=== PATIENT | female | born 1955 | race American Indian/Alaskan Native ===

== ENCOUNTER 2016-12-29 08:58 | Emergency (ER) | payer MEDICARE, MEDICAID ==
[2016-12-29 08:59] VITALS: BMI 35.4
[2016-12-29 09:29] VITALS: RESP 18; TEMP 98
--- NOTE | 2016-12-29 09:48 | ED PDOC ---
Arrival/HPI - General Chief Complaint: Shortness Of Breath Time Seen by Provider: 12/29/16 09:34 Historian: Patient - History of Present Illness Narrative History of Present Illness (Text): 12/29/16 09:35 A 61 year old female, whose past medical history includes asthma (previously hospitalized but never intubated), presents to the emergency department complaining of persistent wheezing and a nonproductive cough for the past few days. Patient notes she went to her PMD who started her on perdinsone and a Z- bia. Patient denies any chest pain, fever, or other complaints at this time. PMD: Dr. Melchor Time/Duration: Other (few days) Symptom Onset: Sudden Symptom Course: Unchanged Quality: Other Activities at Onset: Rest Context: Home Past Medical History - Provider Review Nursing Documentation Reviewed: Yes - Past History Past History: No Previous - Infectious Disease Hx of Infectious Diseases: None - Tetanus Immunization Tetanus Immunization: Unknown - Reproductive Menopause: Yes - Past Medical History Past Medical History: Non-Contributing - Cardiac Hx Hypertension: Yes - Pulmonary Hx Asthma: Yes Hx Bronchitis: No Hx Chronic Obstructive Pulmonary Disease (COPD): Yes Hx Emphysema: No Hx Pneumonia: No Hx Sleep Apnea: Yes - Neurological Hx Alzheimer's Disease: No Hx Dementia: No Hx Migraine: No Hx Parkinson's Disease: No Hx Seizures: No Hx Transient Ischemic Attacks (TIA): No - HEENT Hx HEENT Disorder: No - Renal Hx Renal Disorder: No Hx Kidney Stones: No - Endocrine/Metabolic Hx Hyperthyroidism: No Hx Hypothyroidism: No - Hematological/Oncological Hx Anemia: No Hx Sickle Cell Disease: No - Integumentary Hx Dermatological Disorder: No - Musculoskeletal/Rheumatological Hx Arthritis: No Hx Fractures: No Hx Osteoporosis: No - Gastrointestinal Hx Crohn's Disease: No Hx Diverticulitis: No Hx Gall Bladder Disease: No Hx Gastrointestinal Ulcer: No Hx Pancreatitis: No - Genitourinary/Gynecological Hx Sexually Transmitted Diseases: No - Psychiatric Hx Anxiety: No Hx Bipolar Disorder: No Hx Depression: No Hx Post Traumatic Stress Disorder: No Hx Schizophrenia: No Hx Substance Use: No - Past Surgical History Past Surgical History: Non-Contributing - Surgical History Hx Section: Yes - Anesthesia Hx Anesthesia: Yes Hx Anesthesia Reactions: No Hx Malignant Hyperthermia: No - Suicidal Assessment Feels Threatened In Home Enviroment: No Family/Social History - Physician Review Nursing Documentation Reviewed: Yes Family/Social History: Unknown Family HX Smoking Status: Never Smoked Hx Alcohol Use: Yes Hx Substance Use: No Hx Substance Use Treatment: No Allergies/Home Meds Allergies/Adverse Reactions: Allergies aspirin Allergy (Mild, Verified 12/29/16 09:29) RASH Penicillins Allergy (Mild, Verified 12/29/16 09:29) RASH Home Medications: Home Meds Medication Instructions Recorded Confirmed Albuterol Sulfate [Proair Hfa] 2 puff INH PRN PRN 05/03/15 12/29/16 Fluticasone/Vilanterol [Breo 1 each IH DAILY 12/02/16 12/29/16 Ellipta 200-25 Mcg INH] Montelukast Sodium [Singulair] 10 mg PO DAILY 12/02/16 12/29/16 Review of Systems - Physician Review All systems were reviewed & negative as marked: Yes - Review of Systems Constitutional: absent: Fevers Respiratory: SOB, Cough. absent: Sputum Cardiovascular: absent: Chest Pain Gastrointestinal: absent: Diarrhea, Nausea, Vomiting Physical Exam Vital Signs Reviewed: Yes Vital Signs Temp Pulse Resp BP Pulse Ox 12/29/16 11:04 68 18 131/69 97 12/29/16 09:25 98 F 75 18 133/75 98 Temperature: Afebrile Blood Pressure: Normal Pulse: Regular Respiratory Rate: Normal Appearance: Positive for: Well-Appearing, Non-Toxic, Comfortable Pain Distress: None Mental Status: Positive for: Alert and Oriented X 3 - Systems Exam Head: Present: Atraumatic, Normocephalic Pupils: Present: PERRL Extroacular Muscles: Present: EOMI Conjunctiva: Present: Normal Mouth: Present: Moist Mucous Membranes Neck: Present: Normal Range of Motion Respiratory/Chest: Present: Wheezes (bilaterally). No: Respiratory Distress, Accessory Muscle Use, Decreased Breath Sounds, Rales, Rhonchi Cardiovascular: Present: Regular Rate and Rhythm, Normal S1, S2. No: Murmurs Abdomen: Present: Normal Bowel Sounds. No: Tenderness, Distention, Peritoneal Signs Back: Present: Normal Inspection Upper Extremity: Present: Normal Inspection. No: Cyanosis, Edema Lower Extremity: Present: Normal Inspection. No: Edema Neurological: Present: GCS=15, CN II-XII Intact, Speech Normal Skin: Present: Warm, Dry, Normal Color. No: Rashes Psychiatric: Present: Alert, Oriented x 3, Normal Insight, Normal Concentration Medical Decision Making ED Course and Treatment: 12/29/16 09:35 Impression: A 61 year old female with wheezing and cough. Differential Diagnosis include but are not limited to: asthma exacerbation Plan: -- EKG -- Chest X-ray -- Labs -- Urinalysis -- Duoneb and Solu-medrol -- Reassess and disposition Prior Visits: Notes and results from previous visits were reviewed. The patient last presented to the emergency department on 12/02/16 for evaluation of swelling to the right lower extremity. Progress Notes: EKG: Ordered, reviewed, and independently interpreted the EKG. Rate : 71 BPM Rhythm : Sinus Rhythm Interpretation : No ST/T changes. 12/29/16 10:00 Chest X-ray: Creator : Itz Han MD COMPARISON: 08/07/2016 FINDINGS: LUNGS: No active pulmonary disease. PLEURA: No significant pleural effusion identified, no pneumothorax apparent. CARDIOVASCULAR: Normal. OSSEOUS STRUCTURES: No significant abnormalities. VISUALIZED UPPER ABDOMEN: Normal. OTHER FINDINGS: None. IMPRESSION: No active disease. 12/29/16 11:25 Patient reassessed. lungs clear. as pt was on po steriods (20mg) x 5 days, not improving at home, requested pt to be admitted. pt declines admission, states "she feels much better". requesting instead to be d/c. will dc with steriod taper. uti covered. - Lab Interpretations Lab Results: 12/29/16 10:00 12/29/16 10:00 Lab Results 12/29/16 10:00: WBC 5.8, RBC 4.39, Hgb 12.6, Hct 36.3, MCV 82.7, MCH 28.7, MCHC 34.7, RDW 14.3, Plt Count 287, MPV 10.0, Gran % 32.2 L, Lymph % (Auto) 51.3 H, [place] % (Auto) 11.0 H, Eos % (Auto) 5.2 H, Baso % (Auto) 0.3, Gran # 1.87, Lymph # 3.0, [place] # 0.6, Eos # 0.3, Baso # 0.02, PT 10.7, INR 0.99, APTT 27.1, Sodium 139, Potassium 4.2, Chloride 102, Carbon Dioxide 32, Anion Gap 9 L, BUN 14, Creatinine 0.7, Est GFR ( Amer) > 60, Est GFR (Non-Af Amer) > 60, Random Glucose 92, Calcium 9.3, Magnesium 2.1, Total Bilirubin 0.7, AST 28, ALT 29, Alkaline Phosphatase 69, Lactate Dehydrogenase 448, Total Creatine Kinase 83, Troponin I < 0.01, NT-Pro-B Natriuret Pep 54.8, Total Protein 7.8, Albumin 3.9, Globulin 3.9, Albumin/Globulin Ratio 1.0 L, Urine Color Yellow, Urine Appearance Turbid, Urine pH 6.0, Ur Specific [place] 1.020, Urine Protein Negative, Urine Glucose (UA) Negative, Urine Ketones Negative, Urine Blood Small H, Urine Nitrate Negative, Urine Bilirubin Negative, Urine Urobilinogen 0.2, Ur Leukocyte Esterase Large H, Urine RBC 0 - 2, Urine WBC 15 - 20, Ur Epithelial Cells 4 - 5, Urine Bacteria Few I have reviewed the lab results: Yes - RAD Interpretation Radiology Orders: 12/29/16 09:39 CHEST PORTABLE [RAD] Stat - Medication Orders Current Medication Orders: Ciprofloxacin (Cipro 400mg/200ml Dsw) 200 mls @ 133.3 mls/hr IVPB STAT STA PRN Reason: Protocol Stop: 12/29/16 12:18 Discontinued Medications Albuterol/Ipratropium (Duoneb 3 Mg/0.5 Mg (3 Ml) Ud) 3 ml IH Q15M ANGELA Stop: 12/29/16 10:16 Last Admin: 12/29/16 10:21 Dose: 3 ML Methylprednisolone (Solu-Medrol) 125 mg IVP STAT STA Stop: 12/29/16 09:40 Last Admin: 12/29/16 10:20 Dose: 125 MG IVP Administration Document 12/29/16 10:20 SF (Rec: 12/29/16 10:20 [id number] Charges for Administration # of IVP Administrations 1 - Scribe Statement The provider has reviewed the documentation as recorded by the Scribe Sahara Adams Provider Scribe Attestation: All medical record entries made by the Scribe were at my direction and personally dictated by me. I have reviewed the chart and agree that the record accurately reflects my personal performance of the history, physical exam, medical decision making, and the department course for this patient. I have also personally directed, reviewed, and agree with the discharge instructions and disposition. Disposition/Present on Arrival - Present on Arrival Any Indicators Present on Arrival: No History of DVT/PE: No History of Uncontrolled Diabetes: No Urinary Catheter: No History of Decub. Ulcer: No History Surgical Site Infection Following: None - Disposition Have Diagnosis and Disposition been Completed?: Yes Diagnosis: Asthma Disposition: HOME/ ROUTINE Disposition Time: 11:27 Patient Problems: Current Active Problems Problem Status Diagnosed Asthma Acute Condition: STABLE Discharge Instructions (ExitCare): Asthma (ED), Urinary Tract Infection in Women (ED) Additional Instructions: please follow up with your doctor. return to er with worsening symptoms or concerns. you are declining futher observation in hospital. you are able to return at any time with any concern. Prescriptions: Sulfamethoxazole/Trimethoprim [Bactrim DS 800 mg-160 mg] 1 tab PO BID #14 tab predniSONE [predniSONE Tab] 10 mg PO DAILY #15 tab Referrals: Suzi Mariscal, [Primary Care Provider] - Follow up with primary [facility] [place] - Follow up with primary [facility] [Outside] - Follow up with primary
--- NOTE | 2016-12-29 09:58 | RAD ---
HISTORY: sob COMPARISON: 08/07/2016 FINDINGS: LUNGS: No active pulmonary disease. PLEURA: No significant pleural effusion identified, no pneumothorax apparent. CARDIOVASCULAR: Normal. OSSEOUS STRUCTURES: No significant abnormalities. VISUALIZED UPPER ABDOMEN: Normal. OTHER FINDINGS: None. IMPRESSION: No active disease.
[2016-12-29] MEDS: Albuterol-Ipratrop 3 mg / 0.5 (3 ml) UD IH SCH ×3 (10:05→10:35)
[2016-12-29 10:24] LABS: ADD MANUAL DIFF? NO
[2016-12-29 10:32] LABS: BASO # 0.02 K/mm3 (0.0-2.0); BASO % 0.3 % (0.0-3.0); EOS # 0.3 (0.0-0.7); EOS % 5.2 % (1.5-5.0); GRAN # 1.87 (1.4-6.5); GRAN % 32.2 % (50.0-68.0); HEMATOCRIT 36.3 % (36.0-48.0); LYMPH % 51.3 % (22.0-35.0); MEAN CELL VOLUME 82.7 fL (80.0-105.0); MEAN CORPUSCULAR HEMOGLOBIN 28.7 pg (25.0-35.0); MEAN CORPUSCULAR HGB CONC 34.7 g/dl (31.0-37.0); MONO # 0.6 (0.1-0.6); PLATELET COUNT 287 10^3/uL (120.0-450.0); RED CELL DISTRIBUTION WIDTH 14.3 % (11.5-14.5); WHITE BLOOD COUNT 5.8 10^3/ul (4.5-11.0)
[2016-12-29 10:39] LABS: URINE BILIRUBIN NEGATIVE (NEGATIVE); URINE BLOOD SMALL (NEGATIVE); URINE GLUCOSE (UA) NEGATIVE (NEGATIVE); URINE KETONE NEGATIVE (NEGATIVE); URINE LEUKOCYTE ESTERASE LARGE Leu/uL (NEGATIVE); URINE PROTEIN NEGATIVE mg/dL (<30 mg/dL); URINE UROBILINOGEN 0.2 E.U./dL (<1 E.U./dL)
[2016-12-29 10:40] LABS: INR 0.99 (0.93-1.08); PARTIAL THROMBOPLASTIN TIME 27.1 Seconds (23.7-30.8); URINE APPEARANCE TURBID (CLEAR); URINE COLOR YELLOW (YELLOW)
[2016-12-29 10:46] LABS: URINE RBC 0 - 2 /hpf (0-2); URINE WBC 15 - 20 /hpf (0-6)
[2016-12-29 10:47] LABS: URINE BACTERIA FEW (NEG)
[2016-12-29] MEDS ORDERED: Ciprofloxacin 400mg/200ml D5W 200 ML IVPB STA (10:48)
[2016-12-29 10:53] LABS: ALKALINE PHOSPHATASE 69 U/L (38-133); ALT/SGPT 29 U/L (7-56); AST/SGOT 28 U/L (15-39); BILIRUBIN,TOTAL 0.7 mg/dL (0.2-1.3); BLOOD UREA NITROGEN 14 mg/dL (7-21); CALCIUM 9.3 mg/dL (8.4-10.5); CARBON DIOXIDE 32 mmol/L (21-33); CHLORIDE 102 mmol/L (98-107); GFR AFRICAN-AMERICAN > 60; GLUCOSE,RANDOM 92 mg/dL (70-110); MAGNESIUM 2.1 mg/dL (1.7-2.2); POTASSIUM 4.2 mmol/L (3.6-5.0); SODIUM 139 mmol/L (132-148); TOTAL PROTEIN 7.8 g/dL (5.8-8.3)
[2016-12-29 11:04] LABS: TROPONIN I < 0.01 ng/mL
[2016-12-29 12:47] VITALS: BP 128/66; PULSE 80; O2SAT 100
--- NOTE | 2016-12-29 16:44 | CARD ---
APPROVED REPORT EKG Measurement Heart [id number] <Conclusion> Normal sinus rhythm with sinus arrhythmia Normal ECG
== END 2016-12-29 13:03 | disposition home or self-care (01) ==
LOC: ED 08:58
DX: J45.909 Unspecified asthma, uncomplicated (principal); I10 Essential (primary) hypertension
CPT/HCPCS: 71010; 80053; 81001; 82550; 83615; 83735; 83880; 84484; 85025; 85610; 85730; 87086; 93005; 94640; 96374; 99285; J2930

== ENCOUNTER 2017-01-31 12:01 | Emergency (ER) | payer OTHER, MEDICAID ==
[2017-01-31 12:02] VITALS: BMI 35.4
[2017-01-31 12:11] VITALS: BP 125/83; PULSE 91; RESP 17; TEMP 98.7; O2SAT 98
--- NOTE | 2017-01-31 12:19 | ED PDOC ---
Arrival/HPI - General Chief Complaint: Lower Extremity Problem/Injury Time Seen by Provider: 01/31/17 12:05 Historian: Patient - History of Present Illness Narrative History of Present Illness (Text): 01/31/17 12:17 61yo female with PMHx of Asthma who present with complaint of left knee pain/ swelling x 3days. States she went to [facility] today for the pain and was referred to ED for further evaluation. she denies previous history. Denies trauma, SOB, chest pain, recent travel, any other complaint. Past Medical History - Provider Review Nursing Documentation Reviewed: Yes - Past History Past History: No Previous - Infectious Disease Hx of Infectious Diseases: None - Tetanus Immunization Tetanus Immunization: Unknown - Past Medical History Past Medical History: Non-Contributing - Cardiac Hx Hypertension: Yes - Pulmonary Hx Asthma: Yes Hx Bronchitis: No Hx Chronic Obstructive Pulmonary Disease (COPD): Yes Hx Emphysema: No Hx Pneumonia: No Hx Sleep Apnea: Yes - Neurological Hx Alzheimer's Disease: No Hx Dementia: No Hx Migraine: No Hx Parkinson's Disease: No Hx Seizures: No Hx Transient Ischemic Attacks (TIA): No - HEENT Hx HEENT Disorder: No - Renal Hx Renal Disorder: No Hx Kidney Stones: No - Endocrine/Metabolic Hx Hyperthyroidism: No Hx Hypothyroidism: No - Hematological/Oncological Hx Anemia: No Hx Sickle Cell Disease: No - Integumentary Hx Dermatological Disorder: No - Musculoskeletal/Rheumatological Hx Arthritis: No Hx Fractures: No Hx Osteoporosis: No - Gastrointestinal Hx Crohn's Disease: No Hx Diverticulitis: No Hx Gall Bladder Disease: No Hx Gastrointestinal Ulcer: No Hx Pancreatitis: No - Genitourinary/Gynecological Hx Sexually Transmitted Diseases: No - Psychiatric Hx Anxiety: No Hx Bipolar Disorder: No Hx Depression: No Hx Post Traumatic Stress Disorder: No Hx Schizophrenia: No Hx Substance Use: No - Past Surgical History Past Surgical History: Non-Contributing - Surgical History Hx Section: Yes - Anesthesia Hx Anesthesia: Yes - Suicidal Assessment Feels Threatened In Home Enviroment: No Family/Social History - Physician Review Nursing Documentation Reviewed: Yes Family/Social History: Unknown Family HX Smoking Status: Never Smoked Hx Alcohol Use: Yes Hx Substance Use: No Hx Substance Use Treatment: No Allergies/Home Meds Allergies/Adverse Reactions: Allergies aspirin Allergy (Mild, Verified 01/31/17 12:06) RASH Penicillins Allergy (Mild, Verified 01/31/17 12:06) RASH Home Medications: Home Meds Medication Instructions Recorded Confirmed Albuterol Sulfate [Proair Hfa] 2 puff INH PRN PRN 05/03/15 01/31/17 Montelukast Sodium [Singulair] 10 mg PO DAILY 12/02/16 01/31/17 Tiotropium Br/Olodaterol HCl 1 puff NEB DAILY 01/31/17 01/31/17 [Stiolto Respimat Inhal [place]] Review of Systems - Physician Review All systems were reviewed & negative as marked: Yes - Review of Systems Constitutional: Normal Eyes: Normal ENT: Normal Respiratory: Normal Cardiovascular: Normal Gastrointestinal: Normal Genitourinary Female: Normal Musculoskeletal: Arthralgias (Left knee pain) Skin: Normal Neurological: Normal Endocrine: Normal Hemo/Lymphatic: Normal Psychiatric: Normal Physical Exam Vital Signs Reviewed: Yes Vital Signs Temp Pulse Resp BP Pulse Ox 01/31/17 12:10 98.7 F 91 H 17 125/83 98 Temperature: Afebrile Blood Pressure: Normal Pulse: Regular Respiratory Rate: Normal Appearance: Positive for: Well-Appearing, Non-Toxic, Comfortable Pain Distress: None Mental Status: Positive for: Alert and Oriented X 3 - Systems Exam Head: Present: Atraumatic, Normocephalic Pupils: Present: PERRL Extroacular Muscles: Present: EOMI Conjunctiva: Present: Normal Mouth: Present: Moist Mucous Membranes Neck: Present: Normal Range of Motion Respiratory/Chest: Present: Clear to Auscultation, Good Air Exchange. No: Respiratory Distress, Accessory Muscle Use Cardiovascular: Present: Regular Rate and Rhythm, Normal S1, S2. No: Murmurs Abdomen: Present: Normal Bowel Sounds. No: Tenderness, Distention, Peritoneal Signs Back: Present: Normal Inspection Upper Extremity: Present: Normal Inspection. No: Cyanosis, Edema Lower Extremity: Present: NORMAL PULSES, Normal ROM, Tenderness (Posterior and anterior left knee), Swelling (Mild swelling of posterior left knee noted), Neurovascularly Intact. No: Edema, CALF TENDERNESS, Cyanosis, Erythema, Deformity, Temperature Abnormalties Neurological: Present: GCS=15, CN II-XII Intact, Speech Normal Skin: Present: Warm, Dry, Normal Color. No: Rashes Psychiatric: Present: Alert, Oriented x 3, Normal Insight, Normal Concentration Medical Decision Making ED Course and Treatment: 01/31/17 13:32 Per US tech - Doppler is negative for DVT. Approximately 5cm Bakers cyst noted Left knee xray - No acute finding Result was DW the pt. Pawel wrap was applied. Pt was referred to ortho Pt the RN Maribell pt declined pain medication in ED. - RAD Interpretation Radiology Orders: 01/31/17 12:15 DUPLEX LOWER EXTRM VEIN LEFT [US] Stat 01/31/17 12:16 KNEE WITH PATELLA LEFT 3 VIEW [RAD] Stat - Medication Orders Current Medication Orders: Discontinued Medications Oxycodone/Acetaminophen (Percocet 5/325 Mg Tab) 1 tab PO STAT STA Stop: 01/31/17 12:17 Last Admin: 01/31/17 12:26 Dose: Disposition/Present on Arrival - Present on Arrival Any Indicators Present on Arrival: No History of DVT/PE: No History of Uncontrolled Diabetes: No Urinary Catheter: No History of Decub. Ulcer: No History Surgical Site Infection Following: None - Disposition Have Diagnosis and Disposition been Completed?: Yes Diagnosis: Bakers cyst, Knee pain Disposition: HOME/ ROUTINE Disposition Time: 13:40 Patient Plan: Discharge Condition: STABLE Discharge Instructions (ExitCare): Knee Pain (ED) Additional Instructions: Follow up with your Doctor/orthopedist Return to ED for any new or worsening symptoms Referrals: Tip Myers MD [Primary Care Provider] - Follow up with primary Aaron Lange MD [Staff Provider] - Follow up with primary
[2017-01-31] MEDS: Oxycodone/Acetaminophen 5/325 mg Tab PO STA ×2 (12:25→12:26)
--- NOTE | 2017-01-31 15:18 | RAD ---
PROCEDURE: Left Knee Radiographs. HISTORY: Pain. COMPARISON: None. FINDINGS: BONES: Normal. No fracture. JOINTS: Normal. No osteoarthritis. JOINT EFFUSION: None. OTHER FINDINGS: None. IMPRESSION: Normal radiographs of the left knee.
--- NOTE | 2017-01-31 17:47 | US ---
PROCEDURE: Left lower extremity venous US HISTORY: Leg pain and swelling. Evaluate for DVT. PHYSICIAN(S): Russell Arellano MD. TECHNIQUE: Duplex sonography and color-flow Doppler with graded compression were used to evaluate the deep venous system of the left lower extremity. FINDINGS: The visualized deep venous system of the left lower extremity is sonographically normal and compressible. Normal wave forms and augmentation are seen. There is no sonographic evidence for deep venous thrombosis in the visualized segments of the left lower extremity. There is a complex 1.4 x 5.0 cm fluid collection left popliteal fossa, consistent with a Ochoa's cyst. IMPRESSION: 1. No sonographic evidence for deep venous thrombosis in the visualized segments of the left lower extremity.
== END 2017-01-31 13:51 | disposition home or self-care (01) ==
LOC: ED 12:01
DX: M71.22 Synovial cyst of popliteal space [Baker], left knee (principal); M25.562 Pain in left knee; I10 Essential (primary) hypertension

== ENCOUNTER 2017-07-24 10:49 | Emergency (ER) | payer OTHER ==
[2017-07-24 10:54] VITALS: BMI 35.6
[2017-07-24 10:55] VITALS: RESP 18; TEMP 98; O2SAT 100
[2017-07-24] MEDS ORDERED: DiphenhydrAMINE 50 mg/ml Inj IVP STA (11:43)
--- NOTE | 2017-07-24 11:47 | ED PDOC ---
Arrival/HPI - General Chief Complaint: Headache Time Seen by Provider: 07/24/17 10:55 - History of Present Illness Narrative History of Present Illness (Text): 62F c/o frontal headache she noted upon waking up last night around 1am. she says the headache did not wake her up but rather she woke up and then noticed it was there. she then went back to sleep and woke up with headache still present and took her BP meds at which time it "eased up." she reports URI sx for the last 2 weeks including nasal congestion and cough. no fever or neck pain. Past Medical History - Past History Past History: No Previous - Infectious Disease Hx of Infectious Diseases: None - Tetanus Immunization Tetanus Immunization: Unknown - Past Medical History Past Medical History: Non-Contributing - Cardiac Hx Cardiac Disorders: Yes Hx Hypertension: Yes - Pulmonary Hx Asthma: Yes Hx Bronchitis: No Hx Chronic Obstructive Pulmonary Disease (COPD): Yes Hx Emphysema: No Hx Pneumonia: No Hx Sleep Apnea: Yes - Neurological Hx Alzheimer's Disease: No Hx Dementia: No Hx Migraine: No Hx Parkinson's Disease: No Hx Seizures: No Hx Transient Ischemic Attacks (TIA): No - HEENT Hx HEENT Disorder: No - Renal Hx Renal Disorder: No Hx Kidney Stones: No - Endocrine/Metabolic Hx Hyperthyroidism: No Hx Hypothyroidism: No - Hematological/Oncological Hx Anemia: No Hx Sickle Cell Disease: No - Integumentary Hx Dermatological Disorder: No - Musculoskeletal/Rheumatological Hx Arthritis: No Hx Fractures: No Hx Osteoporosis: No - Gastrointestinal Hx Crohn's Disease: No Hx Diverticulitis: No Hx Gall Bladder Disease: No Hx Gastrointestinal Ulcer: No Hx Pancreatitis: No - Genitourinary/Gynecological Hx Sexually Transmitted Diseases: No - Psychiatric Hx Anxiety: No Hx Bipolar Disorder: No Hx Depression: No Hx Post Traumatic Stress Disorder: No Hx Schizophrenia: No Hx Substance Use: No - Past Surgical History Past Surgical History: Non-Contributing - Surgical History Hx Section: Yes - Anesthesia Hx Anesthesia: Yes Hx Anesthesia Reactions: No - Suicidal Assessment Feels Threatened In Home Enviroment: No Family/Social History Family/Social History: denies: Intracranial Hemorrhage Smoking Status: Never Smoked Hx Alcohol Use: Yes Hx Substance Use: No Hx Substance Use Treatment: No Allergies/Home Meds Allergies/Adverse Reactions: Allergies aspirin Allergy (Mild, Verified 07/24/17 10:51) RASH Penicillins Allergy (Mild, Verified 07/24/17 10:51) RASH Home Medications: Home Meds Medication Instructions Recorded Confirmed Fluticasone/Vilanterol [Breo 1 puff IH DAILY 07/24/17 07/24/17 Ellipta 100-25 Mcg INH] amLODIPine [Norvasc] 10 g PO DAILY 07/24/17 07/24/17 Review of Systems - Review of Systems Constitutional: absent: Fatigue, Fevers Eyes: absent: Vision Changes ENT: absent: Hearing Changes Respiratory: Cough. absent: SOB Cardiovascular: absent: Chest Pain Gastrointestinal: absent: Nausea, Vomiting Neurological: Headache. absent: Dizziness, Focal Weakness, Gait Changes Physical Exam Vital Signs Reviewed: Yes Vital Signs Temp Pulse Resp BP Pulse Ox 07/24/17 12:05 75 18 135/79 100 07/24/17 10:50 98.0 F 89 18 138/83 100 Appearance: Positive for: Well-Appearing, Non-Toxic, Comfortable Pain Distress: None Mental Status: Positive for: Alert and Oriented X 3 - Systems Exam Head: Present: Atraumatic Pupils: Present: PERRL Extroacular Muscles: Present: EOMI Mouth: Present: Moist Mucous Membranes Neck: Present: Normal Range of Motion (supple) Respiratory/Chest: Present: Clear to Auscultation. No: Respiratory Distress, Accessory Muscle Use Cardiovascular: Present: Regular Rate and Rhythm Neurological: Present: GCS=15, CN II-XII Intact, Motor Func Grossly Intact, Normal Sensory Function, Normal Cerebellar Funct, Gait Normal Skin: Present: Warm, Dry Psychiatric: Present: Alert, Oriented x 3 Medical Decision Making ED Course and Treatment: 07/24/17 13:20 Upon re-evaluation, the patient states she is feeling much better and her headache is completely gone. She is tolerating po well and is comfortable with discharge. Follow up and return precautions advised. - Lab Interpretations Lab Results: 07/24/17 11:50 07/24/17 11:50 Lab Results 07/24/17 11:50: Sodium 140, Potassium 3.5 L, Chloride 102, Carbon Dioxide 32, Anion Gap 10, BUN 13, Creatinine 0.7, Est GFR ( Amer) > 60, Est GFR (Non- Af Amer) > 60, Random Glucose 98, Calcium 9.2, Total Bilirubin 0.7, AST 46 H, ALT 32, Alkaline Phosphatase 75, Total Protein 7.2, Albumin 4.0, Globulin 3.2, Albumin/Globulin Ratio 1.3 07/24/17 11:50: WBC 6.6, RBC 4.46, Hgb 12.7, Hct 37.1, MCV 83.2, MCH 28.5, MCHC 34.2, RDW 14.4, Plt Count 274, MPV 9.6, Gran % 46.8 L, Lymph % (Auto) 31.5, [place] % (Auto) 9.2 H, Eos % (Auto) 12.2 H, Baso % (Auto) 0.3, Gran # 3.11, Lymph # 2.1, [place] # 0.6, Eos # 0.8 H, Baso # 0.02 - RAD Interpretation Radiology Orders: 07/24/17 11:42 HEAD W/O CONTRAST [CT] Stat - Medication Orders Current Medication Orders: Discontinued Medications Diphenhydramine HCl (Benadryl) 25 mg IVP STAT STA Stop: 07/24/17 11:44 Last Admin: 07/24/17 12:00 Dose: 25 mg IVP Administration Document 07/24/17 12:00 NICHOLAS (Rec: 07/24/17 12:03 [id number]) Charges for Administration # of IVP Administrations 1 Metoclopramide HCl (Reglan) 10 mg IVP STAT STA Stop: 07/24/17 11:44 Last Admin: 07/24/17 12:02 Dose: 10 mg IVP Administration Document 07/24/17 12:02 NICHOLAS (Rec: 07/24/17 12:02 [id number]) Charges for Administration # of IVP Administrations 1 - Scribe Statement The provider has reviewed the documentation as recorded by the Mague Billy Provider Scribe Attestation: All medical record entries made by the Scribed were at my direction and personally dictated by me. I have reviewed the chart and agree that the record accurately reflects my personal performance of the history, physical exam, medical decision making, and the department course for this patient. I have also personally directed, reviewed, and agree with the discharge instructions and disposition. Disposition/Present on Arrival - Present on Arrival Any Indicators Present on Arrival: No History of DVT/PE: No History of Uncontrolled Diabetes: No Urinary Catheter: No History of Decub. Ulcer: No History Surgical Site Infection Following: None - Disposition Have Diagnosis and Disposition been Completed?: Yes Diagnosis: Headache, Acute bronchitis Disposition: HOME/ ROUTINE Disposition Time: 13:49 Condition: IMPROVED Discharge Instructions (ExitCare): Acute Headache (ED) Additional Instructions: Please follow up with your doctor later this week. Return to the ER for any worsening symptoms or for any other concerns. Prescriptions: Azithromycin [Zithromax] 250 mg PO DAILY #6 tab Referrals: Tato Adams MD [Primary Care Provider] - Follow up with primary Forms: [employer] ([place])
[2017-07-24 12:02] LABS: BASO # 0.02 K/mm3 (0.0-2.0); BASO % 0.3 % (0.0-3.0); EOS # 0.8 (0.0-0.7); EOS % 12.2 % (1.5-5.0); GRAN # 3.11 (1.4-6.5); GRAN % 46.8 % (50.0-68.0); HEMATOCRIT 37.1 % (36.0-48.0); LYMPH # 2.1 (1.2-3.4); LYMPH % 31.5 % (22.0-35.0); MEAN CELL VOLUME 83.2 fl (80.0-105.0); MEAN CORPUSCULAR HEMOGLOBIN 28.5 pg (25.0-35.0); MEAN CORPUSCULAR HGB CONC 34.2 g/dl (31.0-37.0); MEAN PLATELET VOLUME 9.6 fl (7.0-11.0); MONO # 0.6 (0.1-0.6); MONO % 9.2 % (1.0-6.0); RED CELL DISTRIBUTION WIDTH 14.4 % (11.5-14.5); WHITE BLOOD COUNT 6.6 10^3/ul (4.5-11.0)
[2017-07-24 12:06] VITALS: BP 135/79; PULSE 75
[2017-07-24 12:14] LABS: ALB/GLOB RATIO 1.3 (1.1-1.8); ALKALINE PHOSPHATASE 75 U/L (38-126); ALT/SGPT 32 U/L (7-56); AST/SGOT 46 U/L (14-36); BILIRUBIN,TOTAL 0.7 mg/dL (0.2-1.3); BLOOD UREA NITROGEN 13 mg/dL (7-21); CALCIUM 9.2 mg/dL (8.4-10.5); CARBON DIOXIDE 32 mmol/L (21-33); CHLORIDE 102 mmol/L (98-107); GFR AFRICAN-AMERICAN > 60; GLUCOSE,RANDOM 98 mg/dL (70-110); POTASSIUM 3.5 mmol/L (3.6-5.0); SODIUM 140 mmol/L (132-148); TOTAL PROTEIN 7.2 g/dL (5.8-8.3)
--- NOTE | 2017-07-24 12:49 | CT ---
PROCEDURE: CT HEAD WITHOUT CONTRAST. HISTORY: headache COMPARISON: 02/26/2015 TECHNIQUE: Axial computed tomography images were obtained through the head/brain without intravenous contrast. Radiation dose: Total exam DLP = 678 mGy-cm. This CT exam was performed using one or more of the following dose reduction techniques: Automated exposure control, adjustment of the mA and/or kV according to patient size, and/or use of iterative reconstruction technique. FINDINGS: HEMORRHAGE: No intracranial hemorrhage. BRAIN: No mass effect or edema. No atrophy or chronic microvascular ischemic changes. VENTRICLES: Unremarkable. No hydrocephalus. CALVARIUM: Unremarkable. PARANASAL SINUSES: Unremarkable as visualized. No significant inflammatory changes. MASTOID AIR CELLS: Unremarkable as visualized. No inflammatory changes. OTHER FINDINGS: None. IMPRESSION: No acute findings
== END 2017-07-24 14:14 | disposition home or self-care (01) ==
LOC: ED 10:49
DX: R51 Headache (principal); J20.9 Acute bronchitis, unspecified; I10 Essential (primary) hypertension; Z88.0 Allergy status to penicillin
CPT/HCPCS: 70450; 80053; 85025; 96374; 96375; 99284; J1200; J2765

== ENCOUNTER 2017-09-17 09:11 | Emergency (ER) | payer OTHER ==
[2017-09-17 09:11] VITALS: BMI 35.6
[2017-09-17 09:20] VITALS: TEMP 98.1
[2017-09-17] MEDS ORDERED: DiphenhydrAMINE 12.5 mg/5 ml LIQ UD (5 ml) PO STA (09:31)
[2017-09-17] MEDS ORDERED: Sodium Chloride 0.9% 500 ML IV STA (09:31)
--- NOTE | 2017-09-17 09:32 | ED PDOC ---
Arrival/HPI - General Chief Complaint: Cough, Cold, Congestion Time Seen by Provider: 09/17/17 09:28 Historian: Patient - History of Present Illness Narrative History of Present Illness (Text): 09/17/17 09:28 pt p/w + 3-4 days onset of sob/chest tightness/dry coughing, runny nose; pt states she has been wheezing as well and pt has been using her inhaler at least 3-4 times/daily and her nebulizer 3-4 times/daily; pt states she just moved to a new living quarter and hot air is blowing directly in her bedroom possibly exciting her asthma; pt states + slight body aches over the last few days; + chest tightness, no fever/chills/sweats, + runny nose, no palpitations, no abd pain, no n/v, good appetite, no urinary/bowel changes, no rashes, no fall/trauma /sick contact, no travel; pt denied dizziness/lightheadedness/loc pt denied other complaints pt is here for further eval. 09/17/17 10:40 09/17/17 11:00 Time/Duration: < week (3-4 days) Symptom Onset: Sudden Symptom Course: Worsening Quality: Tightness Severity Level: 8 Activities at Onset: Rest Context: Sitting Past Medical History - Provider Review Nursing Documentation Reviewed: Yes - Travel History Have you recently traveled outside [place] w/in the past 3 mons?: No - Past History Past History: No Previous - Infectious Disease Hx of Infectious Diseases: None - Tetanus Immunization Tetanus Immunization: Unknown - Past Medical History Past Medical History: Non-Contributing - Cardiac Hx Cardiac Disorders: Yes Hx Hypertension: Yes - Pulmonary Hx Asthma: Yes Hx Bronchitis: No Hx Chronic Obstructive Pulmonary Disease (COPD): Yes Hx Emphysema: No Hx Pneumonia: No Hx Sleep Apnea: Yes - Neurological Hx Alzheimer's Disease: No Hx Dementia: No Hx Migraine: No Hx Parkinson's Disease: No Hx Seizures: No Hx Transient Ischemic Attacks (TIA): No - HEENT Hx HEENT Disorder: No - Renal Hx Renal Disorder: No Hx Kidney Stones: No - Endocrine/Metabolic Hx Hyperthyroidism: No Hx Hypothyroidism: No - Hematological/Oncological Hx Anemia: No Hx Sickle Cell Disease: No - Integumentary Hx Dermatological Disorder: No - Musculoskeletal/Rheumatological Hx Arthritis: No Hx Fractures: No Hx Osteoporosis: No - Gastrointestinal Hx Crohn's Disease: No Hx Diverticulitis: No Hx Gall Bladder Disease: No Hx Gastrointestinal Ulcer: No Hx Pancreatitis: No - Genitourinary/Gynecological Hx Sexually Transmitted Diseases: No - Psychiatric Hx Anxiety: No Hx Bipolar Disorder: No Hx Depression: No Hx Post Traumatic Stress Disorder: No Hx Schizophrenia: No Hx Substance Use: No - Past Surgical History Past Surgical History: Non-Contributing - Surgical History Hx Section: Yes - Anesthesia Hx Anesthesia: Yes Hx Anesthesia Reactions: No - Suicidal Assessment Feels Threatened In Home Enviroment: No Family/Social History - Physician Review Nursing Documentation Reviewed: Yes Family/Social History: No Known Family HX Smoking Status: Never Smoked Hx Alcohol Use: Yes Hx Substance Use: No Hx Substance Use Treatment: No Allergies/Home Meds Allergies/Adverse Reactions: Allergies aspirin Allergy (Mild, Verified 09/17/17 09:16) RASH Penicillins Allergy (Mild, Verified 09/17/17 09:16) RASH Home Medications: Home Meds Medication Instructions Recorded Confirmed Fluticasone/Vilanterol [Breo 1 puff IH DAILY 07/24/17 09/17/17 Ellipta 100-25 Mcg INH] amLODIPine [Norvasc] 10 mg PO DAILY 07/24/17 09/17/17 Albuterol HFA [Ventolin HFA 90 2 puff IH PRN PRN 09/17/17 09/17/17 mcg/actuation (8 g)] Review of Systems - Review of Systems Constitutional: Normal Eyes: Normal ENT: Normal Respiratory: SOB, Cough, Wheezing. absent: Sputum Cardiovascular: Chest Pain Gastrointestinal: Normal Genitourinary Female: Normal Musculoskeletal: Normal Skin: Normal Neurological: Normal Endocrine: Normal Hemo/Lymphatic: Normal Psychiatric: Normal Physical Exam Vital Signs Reviewed: Yes Vital Signs Temp Pulse Resp BP Pulse Ox 09/17/17 12:06 98.1 F 89 18 161/71 H 95 09/17/17 11:03 75 18 138/74 98 09/17/17 09:19 98.1 F 78 16 141/87 98 Temperature: Afebrile Blood Pressure: Hypertensive (mildly elevated BP) Pulse: Regular Respiratory Rate: Normal Appearance: Positive for: Well-Appearing, Non-Toxic, Other (uncomfortable, mild resp distress, alert/awake, able to speak in full sentences, cooperative, sitting on bed) Pain Distress: None Mental Status: Positive for: Alert and Oriented X 3 - Systems Exam Head: Present: Atraumatic, Normocephalic Pupils: Present: PERRL, Other (no nystagmus, no photophobia, sclera anicteric; visual field intact b/l) Extroacular Muscles: Present: EOMI Conjunctiva: Present: Normal Ears: Present: Normal Mouth: Present: Moist Mucous Membranes, Normal Teeth, Other (no drooling/stridor , no dysphonia) Pharnyx: Present: Normal, Other (uvula/tongue are midline, no drooling/stridor, no dysphonia) Nose (External): Present: Atraumatic Neck: Present: Normal Range of Motion, Trachea Midline. No: MIDLINE TENDERNESS Respiratory/Chest: Present: Good Air Exchange, Wheezes, Other (+ decr breath sounds throughout; no asymmetric breath sounds, + diffuse wheezing b/l; + mild tachypenia, no accessory muscle use; no rales/rhonchi). No: Respiratory Distress, Accessory Muscle Use Cardiovascular: Present: Regular Rate and Rhythm, Normal S1, S2. No: Murmurs, Tachycardic Abdomen: Present: Normal Bowel Sounds, Other (well nourished/obese female, no focal tenderness, no cunha's sign, no mcburney's point tenderness, no masses/ rebound/guarding/rigidity). No: Tenderness, Distention, Peritoneal Signs Back: Present: Normal Inspection. No: Midline Tenderness Upper Extremity: Present: Normal Inspection, Normal ROM, NORMAL PULSES, Neurovascularly Intact, Capillary Refill < 2s. No: Cyanosis, Edema Lower Extremity: Present: Normal Inspection, NORMAL PULSES, Normal ROM, Capillary Refill < 2 s, Other (strength 5/5 grossly intact in all limbs, + ambulatory, faint b/l lower ankle/distal leg swelling, no pitting edema noted). No: Edema, Devonte's Sign Neurological: Present: GCS=15, CN II-XII Intact, Speech Normal Skin: Present: Warm, Dry, Normal Color, Other (cap refill < 1 sec, no ulcerations, no petechiae, no rashes). No: Rashes Psychiatric: Present: Alert, Oriented x 3, Normal Insight, Normal Concentration Medical Decision Making ED Course and Treatment: 09/17/17 09:32 Impression: sob/wheezing/chest tightness x 3-4 days i have consider all the differential diagnosis regarding pt's chief medical complaints/clinical findings, including but are not limited to: Differential Diagnosis included but are not limited to: asthma exacerbation, allergic rhinitis/reaction; unlikely cardiac origin/cause will evaluate, unlikely PE/clots; unlikely infectious cause A/P: sob/wheezing - labs - xray - observe - supportive care - steroids - treatment 09/17/17 12:24 On reevaluation, patient felt better with dry cough noted. lungs reexamination: CTA cleared to auscultation b/l, no wheezing, no rales, no rhonchi; no tachypnea , no accessory muscle use noted. 09/17/17 12:56 pt remained comfortable pt's vital signs are improved pt/family are made aware of pt's medical results pt is encouraged fluids pt is encouraged honey 1tsp every 8hours for cough control pt is encouraged continue using nebs/inhaler every 4-6 hours over the next 1-2 days, even if not sob/wheezing pt will f/u as directed pt will be discharged home 09/17/17 12:57 Re-evaluation Time: 11:30 Reassessment Condition: Improved - Lab Interpretations Lab Results: 09/17/17 09:56 09/17/17 09:56 Lab Results 09/17/17 10:31: Influenza Typ A,B (EIA) Negative for flu a/b 09/17/17 09:56: WBC 6.4, RBC 4.64, Hgb 13.4, Hct 39.3, MCV 84.7, MCH 28.9, MCHC 34.1, RDW 14.8 H, Plt Count 290, MPV 10.5, Gran % 38.3 L, Lymph % (Auto) 44.4 H , [place] % (Auto) 10.2 H, Eos % (Auto) 6.5 H, Baso % (Auto) 0.6, Gran # 2.46, Lymph # 2.9, [place] # 0.7 H, Eos # 0.4, Baso # 0.04 09/17/17 09:56: Sodium 143, Potassium 4.1, Chloride 107, Carbon Dioxide 27, Anion Gap 13, BUN 14, Creatinine 0.8, Est GFR ( Amer) > 60, Est GFR (Non- Af Amer) > 60, Random Glucose 100, Calcium 9.5, Lactate Dehydrogenase 686, Total Creatine Kinase 158, Troponin I < 0.01, NT-Pro-B Natriuret Pep 96.5 WNL I have reviewed the lab results: Yes (WNL) Interpretation: All labs normal - RAD Interpretation Radiology Orders: 09/17/17 09:29 CHEST TWO VIEWS (PA/LAT) [RAD] Stat 09/17/17 11:58 chest xray Creator : Escobar Pederson MD FINDINGS: LUNGS: No active pulmonary disease. PLEURA: No significant pleural effusion identified. No pneumothorax apparent. CARDIOVASCULAR: Normal. OSSEOUS STRUCTURES: No significant abnormalities. VISUALIZED UPPER ABDOMEN: Normal. IMPRESSION: No active disease. No significant interval change compared to the prior examination(s). Bill Of Materials Clerk: ED Physician - EKG Interpretation EKG Interpretation (Text): 09/17/17 11:03 NSR at 70 bpm, normal axis, no ectopy, qs in leads III, F, no st-t changes, BORDERLINE EKG; unchanged compare with old ekg 12/2016 Interpreted by ED Physician: Yes Type: 12 lead EKG Comparison: Similar to previous EKG - Medication Orders Current Medication Orders: Discontinued Medications Albuterol/Ipratropium (Duoneb 3 Mg/0.5 Mg (3 Ml) Ud) 3 ml IH Q15M ANGELA Stop: 09/17/17 10:01 Last Admin: 09/17/17 10:00 Dose: 3 ml Diphenhydramine HCl (Benadryl) 12.5 mg PO STAT STA Stop: 09/17/17 09:32 Last Admin: 09/17/17 10:03 Dose: 12.5 mg Sodium Chloride (Sodium Chloride 0.9%) 500 mls @ 999 mls/hr IV .Q31M STA Stop: 09/17/17 10:01 Last Admin: 09/17/17 10:03 Dose: 999 mls/hr eMAR Start Stop Document 09/17/17 10:03 OCS (Rec: 09/17/17 10:03 OCS [id number]) Intravenous Solution Start Date 09/17/17 Start Time 10:03 Methylprednisolone (Solu-Medrol) 125 mg IVP STAT STA Stop: 09/17/17 09:31 Last Admin: 12/25/17 10:03 Dose: 125 mg IVP Administration Document 09/17/17 10:03 OCS (Rec: 09/17/17 10:03 OCS [id number]) Charges for Administration # of IVP Administrations 1 Disposition/Present on Arrival - Present on Arrival Any Indicators Present on Arrival: No History of DVT/PE: No History of Uncontrolled Diabetes: No Urinary Catheter: No History of Decub. Ulcer: No History Surgical Site Infection Following: None - Disposition Have Diagnosis and Disposition been Completed?: Yes Diagnosis: Asthma exacerbation, Atypical chest pain, Cough, Nonspecific syndrome suggestive of viral illness Disposition: HOME/ ROUTINE Disposition Time: 12:45 Patient Plan: Discharge Patient Problems: Current Active Problems Problem Status Onset Asthma exacerbation Acute Atypical chest pain Acute Cough Acute Nonspecific syndrome suggestive of viral illness Acute Condition: STABLE Discharge Instructions (ExitCare): Chest Pain (ED), Asthma (ED), Cold Symptoms (ED), Viral Syndrome (ED) Print Language: [place] Additional Instructions: Make sure to see your doctor in 1-2 days DRINK PLENTY OF FLUIDS try 1 teaspoon of honey every 8hours for cough control take your medications as prescribed use the inhaler/nebulizer every 4-6 hours over the next 1-2 days even if your not short of breath/wheezing RETURN TO ED IF worse pain, cant breath, persistent vomiting, high fever >101- 102 for hours, altered behavior, unable to urinate, heavy/persistent bleeding, passing out, chest pain, or other medical emergencies Prescriptions: Prednisone 50 mg PO DAILY #4 tablet Referrals: Suzi Mariscal, [Primary Care Provider] - Follow up with primary Forms: [employer] (Thai)
[2017-09-17] MEDS: Albuterol-Ipratrop 3 mg / 0.5 (3 ml) UD IH SCH ×2 (09:45→10:00)
[2017-09-17 10:12] LABS: BASO # 0.04 K/mm3 (0.0-2.0); BASO % 0.6 % (0.0-3.0); EOS # 0.4 (0.0-0.7); EOS % 6.5 % (1.5-5.0); GRAN # 2.46 (1.4-6.5); GRAN % 38.3 % (50.0-68.0); HEMATOCRIT 39.3 % (36.0-48.0); LYMPH # 2.9 (1.2-3.4); LYMPH % 44.4 % (22.0-35.0); MEAN CELL VOLUME 84.7 fl (80.0-105.0); MEAN CORPUSCULAR HEMOGLOBIN 28.9 pg (25.0-35.0); MEAN CORPUSCULAR HGB CONC 34.1 g/dl (31.0-37.0); MEAN PLATELET VOLUME 10.5 fl (7.0-11.0); MONO # 0.7 (0.1-0.6); MONO % 10.2 % (1.0-6.0); RED CELL DISTRIBUTION WIDTH 14.8 % (11.5-14.5); WHITE BLOOD COUNT 6.4 10^3/ul (4.5-11.0)
[2017-09-17 10:19] LABS: BLOOD UREA NITROGEN 14 mg/dL (7-21); CALCIUM 9.5 mg/dL (8.4-10.5); CARBON DIOXIDE 27 mmol/L (21-33); CHLORIDE 107 mmol/L (98-107); GFR AFRICAN-AMERICAN > 60; GLUCOSE,RANDOM 100 mg/dL (70-110); POTASSIUM 4.1 mmol/L (3.6-5.0); SODIUM 143 mmol/L (132-148)
[2017-09-17 10:31] LABS: TROPONIN I < 0.01 ng/mL
[2017-09-17 11:03] VITALS: RESP 18
--- NOTE | 2017-09-17 11:56 | RAD ---
HISTORY: Wheezing, chest pain COMPARISON: 12/29/2016 TECHNIQUE: Chest PA and lateral FINDINGS: LUNGS: No active pulmonary disease. PLEURA: No significant pleural effusion identified. No pneumothorax apparent. CARDIOVASCULAR: Normal. OSSEOUS STRUCTURES: No significant abnormalities. VISUALIZED UPPER ABDOMEN: Normal. OTHER FINDINGS: None. IMPRESSION: No active disease. No significant interval change compared to the prior examination(s).
[2017-09-17 12:07] VITALS: BP 161/71; PULSE 89; O2SAT 95
--- NOTE | 2017-09-18 17:32 | CARD ---
APPROVED REPORT EKG Measurement Heart [id number] <Conclusion> Normal sinus rhythm Normal ECG
== END 2017-09-17 13:06 | disposition home or self-care (01) ==
LOC: ED 09:11
DX: J45.901 Unspecified asthma with (acute) exacerbation (principal); R07.89 Other chest pain; I10 Essential (primary) hypertension; Z88.0 Allergy status to penicillin
CPT/HCPCS: 71020; 80048; 82550; 83615; 83880; 84484; 85025; 87804; 93005; 94640; 96374; 99283; J2930; J7040

== ENCOUNTER 2017-10-16 10:19 | Emergency (ER) | payer OTHER ==
[2017-10-16 10:19] VITALS: BMI 35.6
[2017-10-16 10:43] VITALS: BP 128/82; PULSE 99; RESP 18; TEMP 97.8; O2SAT 99
== END 2017-10-16 10:51 | disposition left against medical advice (07) ==
LOC: ED 10:19
DX: Z02.89 Encounter for other administrative examinations (principal); J45.909 Unspecified asthma, uncomplicated

== ENCOUNTER 2017-12-17 08:12 | Emergency (ER) | payer OTHER ==
[2017-12-17 08:32] VITALS: RESP 18; TEMP 98.3; BMI 37.9
--- NOTE | 2017-12-17 09:34 | ED PDOC ---
Arrival/HPI - General Chief Complaint: Lower Extremity Problem/Injury Time Seen by Provider: 12/17/17 08:17 Historian: Patient - History of Present Illness Narrative History of Present Illness (Text): you were treated in the ED today for transient right upper abdomen discomfort for a few seconds but otherwise no further pain and secondarily right lower leg swelling with an ultrasound done about 1 month ago which was negative but otherwise without any nausea/vomiting/headache/dizziness/difficulty breathing/ chest pain/abdomen pain/numbness/tingling/loss of limb function/pain with urination/recent travel/prior blood clots/cancer history/hormonal use. 12/17/17 09:31 Time/Duration: < month (1) Symptom Onset: Gradual Symptom Course: Unchanged Quality: Aching Severity Level: 1 Activities at Onset: Rest Context: Sitting Past Medical History - Provider Review Nursing Documentation Reviewed: Yes - Travel History Have you recently traveled outside [place] w/in the past 3 mons?: No - Past History Past History: No Previous - Infectious Disease Hx of Infectious Diseases: None - Tetanus Immunization Tetanus Immunization: Unknown - Past Medical History Past Medical History: Non-Contributing - Cardiac Hx Cardiac Disorders: Yes Hx Hypertension: Yes - Pulmonary Hx Asthma: Yes Hx Chronic Obstructive Pulmonary Disease (COPD): Yes Hx Sleep Apnea: Yes - Neurological Hx Neurological Disorder: No - HEENT Hx HEENT Disorder: No - Renal Hx Renal Disorder: No - Endocrine/Metabolic Hx Endocrine Disorders: No - Hematological/Oncological Hx Blood Disorders: No - Integumentary Hx Dermatological Disorder: No - Musculoskeletal/Rheumatological Hx Musculoskeletal Disorders: No - Gastrointestinal Hx Gastrointestinal Disorders: No - Genitourinary/Gynecological Hx Genitourinary Disorders: No - Psychiatric Hx Psychophysiologic Disorder: No Hx Substance Use: No - Past Surgical History Past Surgical History: Non-Contributing - Surgical History Hx Section: Yes Hx Hysterectomy: Yes Other/Comment: Right breast cyst removal - Anesthesia Hx Anesthesia: Yes Hx Anesthesia Reactions: No - Suicidal Assessment Feels Threatened In Home Enviroment: No Family/Social History - Physician Review Nursing Documentation Reviewed: Yes Family/Social History: No Known Family HX Smoking Status: Never Smoked Hx Alcohol Use: Yes Hx Substance Use: No Hx Substance Use Treatment: No Allergies/Home Meds Allergies/Adverse Reactions: Allergies aspirin Allergy (Mild, Verified 12/17/17 08:29) RASH Penicillins Allergy (Mild, Verified 12/17/17 08:29) RASH Home Medications: Home Meds Medication Instructions Recorded Confirmed Fluticasone/Vilanterol [Breo 1 puff IH DAILY 07/24/17 12/17/17 Ellipta 100-25 Mcg INH] Albuterol HFA [Ventolin HFA 90 2 puff IH PRN PRN 09/17/17 12/17/17 mcg/actuation (8 g)] Albuterol Sulfate [Proair Hfa] 200 puff IH PRN PRN 10/16/17 12/17/17 Review of Systems - Review of Systems Constitutional: Normal Eyes: Normal ENT: Normal Respiratory: Normal Cardiovascular: Normal Gastrointestinal: Abdominal Pain Genitourinary Female: Normal Musculoskeletal: Normal Skin: Normal Neurological: Normal Endocrine: Normal Hemo/Lymphatic: Normal Psychiatric: Normal Physical Exam Vital Signs Reviewed: Yes Vital Signs Temp Pulse Resp BP Pulse Ox 12/17/17 08:29 98.3 F 78 18 137/84 99 Temperature: Afebrile Blood Pressure: Hypertensive Pulse: Regular Respiratory Rate: Normal Appearance: Positive for: Well-Appearing, Non-Toxic, Comfortable Pain Distress: None Mental Status: Positive for: Alert and Oriented X 3 - Systems Exam Head: Present: Atraumatic, Normocephalic Pupils: Present: PERRL Extroacular Muscles: Present: EOMI Conjunctiva: Present: Normal Ears: Present: Normal Mouth: Present: Moist Mucous Membranes Pharnyx: Present: Normal Nose (External): Present: Atraumatic Nose (Internal): Present: Normal Inspection Neck: Present: Normal Range of Motion Respiratory/Chest: Present: Clear to Auscultation, Good Air Exchange Cardiovascular: Present: Regular Rate and Rhythm Abdomen: No: Tenderness, Distention, Normal Bowel Sounds, Peritoneal Signs, Rebound, Guarding, McBurney's Point Tender, Rovsing's Sign Present, Hernias, Feeding Tubes, Ostomy Tubes, Mass/Organomegaly, Scars, Other Back: Present: Normal Inspection Upper Extremity: Present: Normal Inspection Lower Extremity: Present: Other (right lower leg enlargement vs left but otherwise pink/warm/sensation/cap refill/dp pulses+ wo bony tenderness and w + from.) Neurological: Present: GCS=15, CN II-XII Intact, Speech Normal, Motor Func Grossly Intact Skin: Present: Warm, Normal Color Psychiatric: Present: Alert, Oriented x 3, Normal Insight, Normal Concentration Medical Decision Making ED Course and Treatment: you were treated in the ED today for transient right upper abdomen discomfort for a few seconds but otherwise no further pain and secondarily right lower leg swelling with an ultrasound done about 1 month ago which was negative but otherwise without any nausea/vomiting/headache/dizziness/difficulty breathing/ chest pain/abdomen pain/numbness/tingling/loss of limb function/pain with urination/recent travel/prior blood clots/cancer history/hormonal use. You were otherwise breathing easily, smiling and talking easily, good strength/sensation , walking easily, clear lungs, no abdomen tenderness, right lower leg mild enlargement vs left but otherwise no pressable swellling and was otherwise warm/ sensation/pink/good distal pulses and no bony tenderness, no fever temp 98.3, stable heart rate 78, stable breathing rate 18, excellent oxygen level 99% room air, elevated blood pressure 137/84 which we recommend repeat in 2-3 days primary care office to determine further treatment, you have blood tests no infection count 5, stable blood level hemoglobin 13/platelets 294, stable chemistry, heart blood test negative less than 0.01, radiology right lower leg swelling and with discussion with ultrasound negative for deep vein clot at this time, ECG normal sinus rhythm which is similar to prior, tylenol, observation done in the ED with improvement, counselled to monitor symptoms and thus discharged home with fiance. 1. Recommend low fat diet. 2. Recommend follow -up primary care 2-3 days to review symptoms, get final right lower leg ultrasound report, referral to surgery clinic to review symptoms/consider ultrasound evaluation of right upper abdomen to ensure further care, referral to vascular clinic to review symptoms. 4. If any worsening pain, fever, chills, nausea, vomiting, difficulty breathing, numbness, loss of limb function, pain with urination or any medical condition then return to the ED. Reassessment Condition: Re-examined, Improved - Lab Interpretations Lab Results: 12/17/17 10:40 12/17/17 10:40 Lab Results 12/17/17 10:40: PT 11.0, INR 0.96, APTT 31.8 12/17/17 10:40: Sodium 141, Potassium 4.0, Chloride 107, Carbon Dioxide 27, Anion Gap 12, BUN 16, Creatinine 0.8, Est GFR ( Amer) > 60, Est GFR (Non- Af Amer) > 60, Random Glucose 90, Calcium 9.8, Magnesium 2.1, Total Bilirubin 0.3, AST 22, ALT 31, Alkaline Phosphatase 65, Lactate Dehydrogenase 630, Total Creatine Kinase 87, Troponin I < 0.01, Total Protein 7.2, Albumin 3.9, Globulin 3.3, Albumin/Globulin Ratio 1.2, Lipase 78 12/17/17 10:40: WBC 5.3, RBC 4.51, Hgb 13.1, Hct 38.3, MCV 84.9, MCH 29.0, MCHC 34.2, RDW 15.1 H, Plt Count 294, MPV 9.8, Gran % 52.0, Lymph % (Auto) 36.8 H, [place] % (Auto) 9.9 H, Eos % (Auto) 1.1 L, Baso % (Auto) 0.2, Gran # 2.77, Lymph # (Auto) 2.0, [place] # (Auto) 0.5, Eos # (Auto) 0.1, Baso # (Auto) 0.01 I have reviewed the lab results: Yes - RAD Interpretation Radiology Orders: 12/17/17 09:28 DUPLEX LOWER EXTRM VEIN RIGHT [US] Stat body and frame technician right lower leg ultrasound neg for dvt - EKG Interpretation Interpreted by ED Physician: Yes (normal sinus rhythm which is similar to prior 12/29/16.) Type: 12 lead EKG Comparison: Similar to previous EKG (12/29/16.) - Medication Orders Current Medication Orders: Discontinued Medications Acetaminophen (Tylenol 325mg Tab) 975 mg PO STAT STA Stop: 12/17/17 09:38 Last Admin: 12/17/17 12:38 Dose: Not Given Non-Admin Reason: Patient Refused Disposition/Present on Arrival - Present on Arrival Any Indicators Present on Arrival: No History of DVT/PE: No History of Uncontrolled Diabetes: No Urinary Catheter: No History of Decub. Ulcer: No History Surgical Site Infection Following: None - Disposition Have Diagnosis and Disposition been Completed?: Yes Diagnosis: Right leg swelling Disposition: HOME/ ROUTINE Disposition Time: 12:57 Patient Plan: Discharge Condition: IMPROVED Additional Instructions: you were treated in the ED today for transient right upper abdomen discomfort for a few seconds but otherwise no further pain and secondarily right lower leg swelling with an ultrasound done about 1 month ago which was negative but otherwise without any nausea/vomiting/headache/dizziness/difficulty breathing/ chest pain/abdomen pain/numbness/tingling/loss of limb function/pain with urination/recent travel/prior blood clots/cancer history/hormonal use. You were otherwise breathing easily, smiling and talking easily, good strength/sensation , walking easily, clear lungs, no abdomen tenderness, right lower leg mild enlargement vs left but otherwise no pressable swellling and was otherwise warm/ sensation/pink/good distal pulses and no bony tenderness, no fever temp 98.3, stable heart rate 78, stable breathing rate 18, excellent oxygen level 99% room air, elevated blood pressure 137/84 which we recommend repeat in 2-3 days primary care office to determine further treatment, you have blood tests no infection count 5, stable blood level hemoglobin 13/platelets 294, stable chemistry, heart blood test negative less than 0.01, radiology right lower leg swelling and with discussion with ultrasound negative for deep vein clot at this time, ECG normal sinus rhythm which is similar to prior, tylenol, observation done in the ED with improvement, counselled to monitor symptoms and thus discharged home with fiance. 1. Recommend low fat diet. 2. Recommend follow -up primary care 2-3 days to review symptoms, get final right lower leg ultrasound report, referral to surgery clinic to review symptoms/consider ultrasound evaluation of right upper abdomen to ensure further care, referral to vascular clinic to review symptoms. 4. If any worsening pain, fever, chills, nausea, vomiting, difficulty breathing, numbness, loss of limb function, pain with urination or any medical condition then return to the ED. Referrals: Kourtney Pink MD [Primary Care Provider] - Follow up with primary Forms: [employer] (Icelandic)
[2017-12-17 11:07] LABS: BASO # 0.01 K/mm3 (0.0-2.0); BASO % 0.2 % (0.0-3.0); EOS # 0.1 (0.0-0.7); EOS % 1.1 % (1.5-5.0); GRAN # 2.77 (1.4-6.5); HEMOGLOBIN 13.1 g/dL (12.0-16.0); LYMPH % 36.8 % (22.0-35.0); MEAN CELL VOLUME 84.9 fl (80.0-105.0); MEAN CORPUSCULAR HGB CONC 34.2 g/dl (31.0-37.0); MEAN PLATELET VOLUME 9.8 fl (7.0-11.0); MONO # 0.5 (0.1-0.6); MONO % 9.9 % (1.0-6.0); RBC 4.51 10^6/uL (3.5-6.1); RED CELL DISTRIBUTION WIDTH 15.1 % (11.5-14.5); WHITE BLOOD COUNT 5.3 10^3/ul (4.5-11.0)
[2017-12-17 11:22] LABS: ALB/GLOB RATIO 1.2 (1.1-1.8); ALBUMIN 3.9 g/dL (3.0-4.8); ALT/SGPT 31 U/L (7-56); AST/SGOT 22 U/L (14-36); BLOOD UREA NITROGEN 16 mg/dL (7-21); CALCIUM 9.8 mg/dL (8.4-10.5); GFR AFRICAN-AMERICAN > 60; GFR NON-AFRICAN AMERICAN > 60; LIPASE 78 U/L (23-300)
[2017-12-17 11:32] LABS: TROPONIN I < 0.01 ng/mL
[2017-12-17 11:51] LABS: INR 0.96 (0.93-1.08); PARTIAL THROMBOPLASTIN TIME 31.8 Seconds (25.1-36.5)
[2017-12-17 13:21] VITALS: BP 130/82; PULSE 76; O2SAT 98
--- NOTE | 2017-12-17 14:38 | US ---
PROCEDURE: Right lower extremity venous US HISTORY: Leg pain and swelling. Evaluate for DVT. PHYSICIAN(S): Russell Arellano M.D. TECHNIQUE: Duplex sonography and color-flow Doppler with graded compression were used to evaluate the deep venous system of the right lower extremity. FINDINGS: The visualized deep venous system of the right lower extremity is sonographically normal and compressible. Normal waveforms and augmentation are seen. There is no sonographic evidence for deep venous thrombosis in the visualized segments of the right lower extremity. IMPRESSION: 1. No sonographic evidence for deep venous thrombosis in the visualized segments of the right lower extremity.
--- NOTE | 2017-12-17 23:49 | CARD ---
APPROVED REPORT EKG Measurement Heart [id number] <Conclusion> Normal sinus rhythm Normal ECG
== END 2017-12-17 13:21 | disposition home or self-care (01) ==
LOC: ED 08:12
DX: M79.89 Other specified soft tissue disorders (principal); I10 Essential (primary) hypertension

== ENCOUNTER 2018-03-16 08:05 | Emergency (ER) | payer OTHER ==
[2018-03-16 08:05] VITALS: BMI 37.9
[2018-03-16 08:21] VITALS: TEMP 98
[2018-03-16] MEDS: Albuterol-Ipratrop 3 mg / 0.5 (3 ml) UD IH SCH ×3 (08:26→09:07)
--- NOTE | 2018-03-16 08:36 | ED PDOC ---
Arrival/HPI - History of Present Illness Time/Duration: 1 week Symptom Onset: Gradual Symptom Course: Unchanged Quality: Pressure <Kurt Adams - Last Filed: 03/16/18 11:11> <MaryYolanda - Last Filed: 03/16/18 18:29> - General Chief Complaint: Shortness Of Breath Time Seen by Provider: 03/16/18 08:06 - History of Present Illness Narrative History of Present Illness (Text): Patient is a 62 year old female with a past medical history of asthma and hypertension who presents to the emergency department for evaluation and treatment of SOB and chest tightness which began 1 week ago. States these symptoms occur annually during seasonal changes. Admits to increased SOB with exertion. Denies need for intubations in the past. Denies fever, chills, chest pain, abdominal pain, nausea, vomiting, diarrhea, constipation, and urinary symptoms. (Kurt Adams) Past Medical History - Provider Review Nursing Documentation Reviewed: Yes - Past History Past History: No Previous - Infectious Disease Hx of Infectious Diseases: None - Tetanus Immunization Tetanus Immunization: Unknown - Reproductive Menopause: Yes - Past Medical History Past Medical History: Non-Contributing - Cardiac Hx Cardiac Disorders: Yes Hx Hypertension: Yes - Pulmonary Hx Asthma: Yes Hx Chronic Obstructive Pulmonary Disease (COPD): Yes Hx Sleep Apnea: Yes - Neurological Hx Neurological Disorder: No - HEENT Hx HEENT Disorder: No - Renal Hx Renal Disorder: No - Endocrine/Metabolic Hx Endocrine Disorders: No - Hematological/Oncological Hx Blood Disorders: No - Integumentary Hx Dermatological Disorder: No - Musculoskeletal/Rheumatological Hx Musculoskeletal Disorders: No - Gastrointestinal Hx Gastrointestinal Disorders: No - Genitourinary/Gynecological Hx Genitourinary Disorders: No - Psychiatric Hx Psychophysiologic Disorder: No Hx Substance Use: No - Past Surgical History Past Surgical History: Non-Contributing - Surgical History Hx Section: Yes Hx Hysterectomy: Yes Other/Comment: Right breast cyst removal - Anesthesia Hx Anesthesia: Yes Hx Anesthesia Reactions: No Hx Malignant Hyperthermia: No - Suicidal Assessment Feels Threatened In Home Enviroment: No <Kurt Adams - Last Filed: 03/16/18 11:11> Family/Social History - Physician Review Nursing Documentation Reviewed: Yes Family/Social History: Unknown Family HX Smoking Status: Never Smoked Hx Alcohol Use: Yes Hx Substance Use: No Hx Substance Use Treatment: No <Kurt Adams - Last Filed: 03/16/18 11:11> Allergies/Home Meds <Kurt Adams - Last Filed: 03/16/18 11:11> <Yolanda Hernandez - Last Filed: 03/16/18 18:29> Allergies/Adverse Reactions: Allergies aspirin Allergy (Mild, Verified 03/16/18 08:22) RASH Penicillins Allergy (Mild, Verified 03/16/18 08:22) RASH Home Medications: Home Meds Medication Instructions Recorded Confirmed Fluticasone/Vilanterol [Breo 1 puff IH DAILY 07/24/17 03/16/18 Ellipta 100-25 Mcg INH] Albuterol HFA [Ventolin HFA 90 2 puff IH PRN PRN 09/17/17 03/16/18 mcg/actuation (8 g)] Albuterol Sulfate [Proair Hfa] 200 puff IH PRN PRN 10/16/17 03/16/18 Review of Systems - Review of Systems Constitutional: Normal Eyes: Normal ENT: Normal Respiratory: SOB, Wheezing. absent: Cough, Sputum Cardiovascular: Normal Gastrointestinal: Normal Genitourinary Female: Normal Musculoskeletal: Normal Skin: Normal Neurological: Normal Endocrine: Normal Hemo/Lymphatic: Normal Psychiatric: Normal <Kurt Adams - Last Filed: 03/16/18 11:11> Physical Exam Temperature: Afebrile Blood Pressure: Hypertensive Pulse: Regular Respiratory Rate: Normal Appearance: Positive for: Well-Appearing, Non-Toxic, Comfortable Pain Distress: None Mental Status: Positive for: Alert and Oriented X 3 - Systems Exam Head: Present: Atraumatic, Normocephalic Pupils: Present: PERRL Extroacular Muscles: Present: EOMI Conjunctiva: Present: Normal Mouth: Present: Moist Mucous Membranes Neck: Present: Normal Range of Motion Respiratory/Chest: Present: Decreased Breath Sounds. No: Good Air Exchange, Respiratory Distress, Accessory Muscle Use Cardiovascular: Present: Regular Rate and Rhythm, Normal S1, S2. No: Murmurs Abdomen: No: Tenderness, Distention, Peritoneal Signs Back: Present: Normal Inspection Upper Extremity: Present: Normal Inspection. No: Cyanosis, Edema Lower Extremity: Present: Normal Inspection. No: Edema Neurological: Present: GCS=15, CN II-XII Intact, Speech Normal Skin: Present: Warm, Dry, Normal Color. No: Rashes Psychiatric: Present: Alert, Oriented x 3, Normal Insight, Normal Concentration <Kurt Adams - Last Filed: 03/16/18 11:11> Vital Signs Temp Pulse Resp BP Pulse Ox 03/16/18 11:23 98 F 82 19 125/63 99 03/16/18 11:16 98 F 85 19 124/52 L 99 03/16/18 08:23 74 19 156/76 H 97 03/16/18 08:18 98 F 81 21 163/79 H 99 Medical Decision Making <Kurt Adams - Last Filed: 03/16/18 11:11> - RAD Interpretation Electrician Maintenance: ED Physician, Radiologist - EKG Interpretation Interpreted by ED Physician: Yes Type: 12 lead EKG <Yolanda Hernandez - Last Filed: 03/16/18 18:29> ED Course and Treatment: Assessment and Plan: Patient is a 62 year old female with a past medical history of asthma and hypertension who presents to the emergency department for evaluation and treatment of SOB and chest tightness which began 1 week ago. Asthma Exacerbation 03/16/18 08:56 - Duonebs x 3 - solumedrol - CBC, CMP - Cardiac Iso - Chest portable - blood culture 03/16/18 11:11 - patient breathing significantly improved - ok for discharge to home on prednisone and azithromycin 03/16/18 11:13 (Kurt Adams) 03/16/18 09:54 62 year old female presents to the Emergency department for shortness of breath associated with chest tightness since 1 week. In agreement with resident note, which includes further HPI details. Patient was seen and evaluated with resident, came up with plan and treatment together. Patient is a 62 yo female with past medical history of asthma presents with wheezing and "chest tightness". No chest pain with exertion. No pleuritic pain. Based on exam and history, I feel chest tightness at this time likely pulmonary in nature as there is diffuse bilateral wheezing noted on initial exam, and she has prior history of similar sensation with prior asthma exacerbations. After nebulizers and steroids patient has COMPLETE RESOLUTION of wheezing, no hypoxia, states she feels completely better. No chest pain. No leg pain or swelling. No hypoxia. Will d/c with prednisone, continuation of nebs prn at home, Zpak for possible component of sinusitis. (Yolanda Hernandez) - Lab Interpretations Lab Results: 03/16/18 08:30 03/16/18 08:30 Lab Results 03/16/18 08:30: Sodium 142, Potassium 4.4, Chloride 106, Carbon Dioxide 27, Anion Gap 14, BUN 18, Creatinine 0.6 L, Est GFR ( Amer) > 60, Est GFR ( Non-Af Amer) > 60, Random Glucose 102, Calcium 9.3, Total Bilirubin 0.3, AST 24 , ALT 25, Alkaline Phosphatase 59, Lactate Dehydrogenase 544, Total Creatine Kinase 96, Troponin I < 0.01, Total Protein 6.4, Albumin 3.9, Globulin 2.5, Albumin/Globulin Ratio 1.6 03/16/18 08:30: PT 10.8, INR 0.94, APTT 33.6 03/16/18 08:30: WBC 4.1 L D, RBC 4.59, Hgb 13.0, Hct 37.9, MCV 82.6, MCH 28.3, MCHC 34.3, RDW 13.8, Plt Count 299, MPV 10.0, Gran % 29.5 L, Lymph % (Auto) 46.1 H, [place] % (Auto) 9.2 H, Eos % (Auto) 14.0 H, Baso % (Auto) 1.2, Gran # 1.22 L, Lymph # (Auto) 1.9, [place] # (Auto) 0.4, Eos # (Auto) 0.6, Baso # (Auto) 0.05 - RAD Interpretation Radiology Orders: 03/16/18 08:23 CHEST PORTABLE [RAD] Stat - Medication Orders Current Medication Orders: Discontinued Medications Albuterol/Ipratropium (Duoneb 3 Mg/0.5 Mg (3 Ml) Ud) 3 ml IH Q15M ANGELA Stop: 03/16/18 09:01 Last Admin: 03/16/18 09:07 Dose: 3 ml Methylprednisolone (Solu-Medrol) 125 mg IVP STAT STA Stop: 03/16/18 08:24 Last Admin: 03/16/18 08:26 Dose: 125 mg <Kurt Adams - Last Filed: 03/16/18 11:11> - PA / VEHICLE COST ENGINEER / Resident Statement ARIES has reviewed & agrees with the documentation as recorded. MD/DO has examined the patient and agrees with the treatment plan. - Scribe Statement The provider has reviewed the documentation as recorded by the Scribe <Yolanda Hernandez - Last Filed: 03/16/18 18:29> - Scribe Statement Francois Brar. All medical record entries made by the Scribe were at my direction and personally dictated by me. I have reviewed the chart and agree that the record accurately reflects my personal performance of the history, physical exam, medical decision making, and the department course for this patient. I have also personally directed, reviewed, and agree with the discharge instructions and disposition. (Yolanda Hernandez) Disposition/Present on Arrival - Present on Arrival Any Indicators Present on Arrival: No History of DVT/PE: No History of Uncontrolled Diabetes: No Urinary Catheter: No History of Decub. Ulcer: No History Surgical Site Infection Following: None - Disposition Have Diagnosis and Disposition been Completed?: No Disposition Time: 11:14 <Kurt Adams - Last Filed: 03/16/18 11:11> <Yolanda Hernandez - Last Filed: 03/16/18 18:29> - Disposition Diagnosis: Asthma exacerbation Disposition: HOME/ ROUTINE Condition: GOOD Discharge Instructions (ExitCare): Asthma in Adults Additional Instructions: AIDAN SIERRA, thank you for letting us take care of you today. Your provider was Yolanda Hernandez MD and you were treated for CHEST TIGHTNESS. The emergency medical care you received today was directed at your acute symptoms. If you were prescribed any medication, please fill it and take as directed. It may take several days for your symptoms to resolve. Return to the Emergency Department if your symptoms worsen, do not improve, or if you have any other problems. Please contact your doctor or call one of the physicians/clinics you have been referred to that are listed on the Patient Visit Information form that is included in your discharge packet. Bring any paperwork you were given at discharge with you along with any medications you are taking to your follow up visit. Our treatment cannot replace ongoing medical care by a primary care provider outside of the emergency department. Thank you for allowing the [facility] team to be part of your care today. If you had an X-Ray or CT scan: A Radiologist will review the ED reading if any change in treatment is needed we will contact you. If you had a blood, urine, or wound culture: It will take several days for the results, if any change in treatment is needed we will contact you. If you had an STI test: It will take 48 hours for the results. Please call after 1 week if you have not heard back. Prescriptions: Azithromycin [Zithromax] 250 mg PO DAILY #6 tab Prednisone 60 mg PO DAILY 5 Days tablet Forms: [employer] (Niuean)
[2018-03-16 08:50] LABS: BASO # 0.05 K/mm3 (0.0-2.0); BASO % 1.2 % (0.0-3.0); EOS # 0.6 (0.0-0.7); GRAN # 1.22 (1.4-6.5); GRAN % 29.5 % (50.0-68.0); LYMPH # 1.9 (1.2-3.4); LYMPH % 46.1 % (22.0-35.0); MEAN CELL VOLUME 82.6 fl (80.0-105.0); MEAN CORPUSCULAR HEMOGLOBIN 28.3 pg (25.0-35.0); MEAN CORPUSCULAR HGB CONC 34.3 g/dl (31.0-37.0); MONO # 0.4 (0.1-0.6); MONO % 9.2 % (1.0-6.0); RBC 4.59 10^6/uL (3.5-6.1); RED CELL DISTRIBUTION WIDTH 13.8 % (11.5-14.5); WHITE BLOOD COUNT 4.1 10^3/ul (4.5-11.0)
[2018-03-16 09:06] LABS: ALB/GLOB RATIO 1.6 (1.1-1.8); ALBUMIN 3.9 g/dL (3.0-4.8); ALT/SGPT 25 U/L (7-56); AST/SGOT 24 U/L (14-36); BLOOD UREA NITROGEN 18 mg/dL (7-21); CALCIUM 9.3 mg/dL (8.4-10.5); GFR AFRICAN-AMERICAN > 60; GFR NON-AFRICAN AMERICAN > 60
[2018-03-16 09:08] LABS: PROTHROMBIN TIME 10.8 SECONDS (9.4-12.5)
[2018-03-16 09:09] LABS: INR 0.94 (0.93-1.08); PARTIAL THROMBOPLASTIN TIME 33.6 Seconds (25.1-36.5)
[2018-03-16 09:18] LABS: TROPONIN I < 0.01 ng/mL
[2018-03-16 10:20] VITALS: RESP 19
--- NOTE | 2018-03-16 11:01 | RAD ---
HISTORY: SOB. COMPARISON: Comparison chest 09/17/2017 FINDINGS: LUNGS: No active pulmonary disease. PLEURA: No significant pleural effusion identified, no pneumothorax apparent. CARDIOVASCULAR: Normal. OSSEOUS STRUCTURES: No significant abnormalities. VISUALIZED UPPER ABDOMEN: Normal. OTHER FINDINGS: None. IMPRESSION: No active disease.
[2018-03-16 11:17] VITALS: O2SAT 99
[2018-03-16 11:23] VITALS: BP 125/63; PULSE 82
--- NOTE | 2018-03-16 11:48 | CARD ---
APPROVED REPORT EKG Measurement Heart [id number] <Conclusion> Normal sinus rhythm Normal ECG
== END 2018-03-16 11:23 | disposition home or self-care (01) ==
LOC: ED 08:05
DX: J45.901 Unspecified asthma with (acute) exacerbation (principal); I10 Essential (primary) hypertension
CPT/HCPCS: 71045; 80053; 82550; 83615; 84484; 85025; 85610; 85730; 87040; 93005; 99284; J2930

== ENCOUNTER 2018-08-23 12:46 | Emergency (ER) | payer OTHER ==
[2018-08-23 12:50] VITALS: BMI 38.0
[2018-08-23 12:52] VITALS: TEMP 98.6; O2SAT 99
[2018-08-23] MEDS ORDERED: Albuterol 0.083% Inhal Sol (2.5 mg/3 mL) UD ONE (12:56)
[2018-08-23 13:06] VITALS: RESP 18
[2018-08-23] MEDS ORDERED: Magnesium Sulfate 2 GM in Sodium Chloride 0.9% 100 ML IVPB ONE (13:13)
[2018-08-23] MEDS ORDERED: Magnesium Sulfate 2 GM in 50 ml Water IVPB ONE (13:30)
--- NOTE | 2018-08-23 14:04 | RAD ---
Date of service: 08/23/2018 HISTORY: r/o infiltrate COMPARISON: 03/16/2018 FINDINGS: LUNGS: No active pulmonary disease. PLEURA: No significant pleural effusion identified, no pneumothorax apparent. CARDIOVASCULAR: No aortic atherosclerotic calcification present. Normal cardiac size. No pulmonary vascular congestion. OSSEOUS STRUCTURES: No significant abnormalities. VISUALIZED UPPER ABDOMEN: Normal. OTHER FINDINGS: None. IMPRESSION: No active disease.
[2018-08-23 14:15] LABS: BASO # 0.02 K/mm3 (0.0-2.0); BASO % 0.6 % (0.0-3.0); EOS % 0.3 % (1.5-5.0); GRAN # 2.7 (1.4-6.5); GRAN % 76.4 % (50.0-68.0); HEMOGLOBIN 12.7 g/dL (12.0-16.0); LYMPH # 0.6 (1.2-3.4); LYMPH % 17.3 % (22.0-35.0); MEAN CELL VOLUME 83.4 fl (80.0-105.0); MEAN CORPUSCULAR HEMOGLOBIN 28.2 pg (25.0-35.0); MEAN CORPUSCULAR HGB CONC 33.8 g/dl (31.0-37.0); MEAN PLATELET VOLUME 9.8 fl (7.0-11.0); MONO # 0.2 (0.1-0.6); MONO % 5.4 % (1.0-6.0); RBC 4.51 10^6/uL (3.5-6.1); RED CELL DISTRIBUTION WIDTH 14.7 % (11.5-14.5); WHITE BLOOD COUNT 3.5 10^3/uL (4.5-11.0)
[2018-08-23] MEDS: Albuterol-Ipratrop 3 mg / 0.5 (3 ml) UD IH SCH ×2 (14:16→14:33)
[2018-08-23 14:31] LABS: ALB/GLOB RATIO 1.3 (1.1-1.8); ALBUMIN 4.1 g/dL (3.0-4.8); ALT/SGPT 26 U/L (7-56); AST/SGOT 28 U/L (14-36); BLOOD UREA NITROGEN 9 mg/dL (7-21); CALCIUM 9.6 mg/dL (8.4-10.5); GFR NON-AFRICAN AMERICAN > 60
--- NOTE | 2018-08-23 14:36 | ED PDOC ---
Arrival/HPI - General Chief Complaint: Respiratory Distress Time Seen by Provider: 08/23/18 12:49 Historian: Patient - History of Present Illness Narrative History of Present Illness (Text): 08/23/18 12:49 63 year old female, whose past medical history includes asthma and hypertension, who presents to the Emergency department for typical asthma symptoms since yesterday. Patient is also complaining of diffuse body aches since yesterday. Patient notes dry cough. Patient states she took her nebulizer at home, with little relief. Patient denies any fever, chest pain, abdominal pain, or any other complaint. PMD: Dr. Pink Time/Duration: 24 hours (pt notes onset as yesterday ) Symptom Onset: Sudden Symptom Course: Unchanged Activities at Onset: Light Past Medical History - Provider Review Nursing Documentation Reviewed: Yes - Past History Past History: No Previous - Infectious Disease Hx of Infectious Diseases: None - Tetanus Immunization Tetanus Immunization: Unknown - Reproductive Menopause: Yes - Past Medical History Past Medical History: Non-Contributing - Cardiac Hx Cardiac Disorders: Yes Hx Hypertension: Yes - Pulmonary Hx Asthma: Yes Hx Chronic Obstructive Pulmonary Disease (COPD): Yes Hx Sleep Apnea: Yes - Neurological Hx Neurological Disorder: No - HEENT Hx HEENT Disorder: No - Renal Hx Renal Disorder: No - Endocrine/Metabolic Hx Endocrine Disorders: No - Hematological/Oncological Hx Blood Disorders: No - Integumentary Hx Dermatological Disorder: No - Musculoskeletal/Rheumatological Hx Musculoskeletal Disorders: No - Gastrointestinal Hx Gastrointestinal Disorders: No - Genitourinary/Gynecological Hx Genitourinary Disorders: No - Psychiatric Hx Psychophysiologic Disorder: No Hx Substance Use: No - Past Surgical History Past Surgical History: Non-Contributing - Surgical History Hx Section: Yes Hx Hysterectomy: Yes Other/Comment: Right breast cyst removal - Anesthesia Hx Anesthesia: Yes Hx Anesthesia Reactions: No Hx Malignant Hyperthermia: No - Suicidal Assessment Feels Threatened In Home Enviroment: No Family/Social History - Physician Review Nursing Documentation Reviewed: Yes Family/Social History: No Known Family HX Smoking Status: Never Smoked Hx Alcohol Use: Yes Hx Substance Use: No Hx Substance Use Treatment: No Allergies/Home Meds Allergies/Adverse Reactions: Allergies aspirin Allergy (Mild, Verified 03/16/18 08:22) RASH Penicillins Allergy (Mild, Verified 03/16/18 08:22) RASH Home Medications: Home Meds Medication Instructions Recorded Confirmed Fluticasone/Vilanterol [Breo 1 puff IH DAILY 07/24/17 03/16/18 Ellipta 100-25 Mcg INH] Albuterol HFA [Ventolin HFA 90 2 puff IH PRN PRN 09/17/17 03/16/18 mcg/actuation (8 g)] Albuterol Sulfate [Proair Hfa] 200 puff IH PRN PRN 10/16/17 03/16/18 Review of Systems - Physician Review All systems were reviewed & negative as marked: Yes - Review of Systems Constitutional: Normal. absent: Fevers Respiratory: Cough (pt notes dry cough). absent: Normal Cardiovascular: Normal. absent: Chest Pain Gastrointestinal: Normal. absent: Abdominal Pain Musculoskeletal: Arthralgias (pt notes diffuse body aches). absent: Normal Physical Exam Vital Signs Reviewed: Yes Vital Signs Temp Pulse Resp BP Pulse Ox 08/23/18 13:06 98.6 F 120 H 18 155/90 H 99 08/23/18 12:50 98.6 F 120 H 22 155/90 H 99 Temperature: Afebrile Blood Pressure: Normal Pulse: Tachycardic Respiratory Rate: Normal Appearance: Positive for: Well-Appearing, Non-Toxic Pain Distress: None Mental Status: Positive for: Alert and Oriented X 3 - Systems Exam Head: Present: Atraumatic, Normocephalic Pupils: Present: PERRL Extroacular Muscles: Present: EOMI Conjunctiva: Present: Normal Mouth: Present: Moist Mucous Membranes Neck: Present: Normal Range of Motion Respiratory/Chest: Present: Good Air Exchange, Wheezes (bilateral expiratory wheeze). No: Respiratory Distress (no apparent distress noted) Cardiovascular: Present: Regular Rate and Rhythm, Normal S1, S2. No: Murmurs Abdomen: No: Tenderness, Distention, Peritoneal Signs Back: Present: Normal Inspection Upper Extremity: Present: Normal Inspection. No: Cyanosis, Edema Lower Extremity: Present: Normal Inspection. No: Edema Neurological: Present: GCS=15, CN II-XII Intact, Speech Normal Skin: Present: Warm, Dry, Normal Color. No: Rashes Psychiatric: Present: Alert, Oriented x 3, Normal Insight, Normal Concentration Medical Decision Making ED Course and Treatment: 08/23/18 12:49 Impression: 63 year old female who presents to the Emergency department for typical asthma symptoms since yesterday and diffuse body aches Plan: -- EKG -- Labs -- CBC (with differential) -- X-Ray of chest -- Magnesium sulfate 2gm in 5 ml IVPB -- SOLU-Medrol 125mg IVP -- Influenza A B -- Reassess and disposition Prior Visits: Notes and results from previous visits were reviewed. Patient was last seen in the emergency department on 03/16/18 evaluation and treatment of SOB and chest tightness which began 1 week prior to arrival. Patient was discharged home with diagnosis of asthma exacerbation. Prescriptions: Azithromycin [Zithromax] 250 mg PO DAILY #6 tab Prednisone 60 mg PO DAILY 5 Days tablet Progress Notes: 08/23/18 15:26 Upon reevaluation, lungs are clear now. Patient is in no distress and feels well enough to go home. Patient will follow up with PMD in 2-3 days. - Lab Interpretations Lab Results: 08/23/18 14:00 08/23/18 14:00 Lab Results 08/23/18 14:00: Influenza Typ A,B (EIA) Negative for flu a/b 08/23/18 14:00: Sodium 140, Potassium 4.1, Chloride 107, Carbon Dioxide 25, Anion Gap 12, BUN 9, Creatinine 0.6 L, Est GFR ( Amer) > 60, Est GFR (Non-Af Amer) > 60, Random Glucose 197 H, Calcium 9.6, Magnesium 2.0, Total Bilirubin 0.3, AST 28, ALT 26, Alkaline Phosphatase 63, Lactate Dehydrogenase 552, Total Creatine Kinase 136, Troponin I Pending, Total Protein 7.4, Albumin 4.1, Globulin 3.3, Albumin/Globulin Ratio 1.3 08/23/18 14:00: WBC 3.5 L, RBC 4.51, Hgb 12.7, Hct 37.6, MCV 83.4, MCH 28.2, MCHC 33.8, RDW 14.7 H, Plt Count 222, MPV 9.8, Gran % 76.4 H, Lymph % (Auto) 17.3 L, [place] % (Auto) 5.4, Eos % (Auto) 0.3 L, Baso % (Auto) 0.6, Gran # 2.70, Lymph # (Auto) 0.6 L, [place] # (Auto) 0.2, Eos # (Auto) 0.0, Baso # (Auto) 0.02 - RAD Interpretation Narrative RAD Interpretations (Text): X-Ray of chest reviewed by radiologist, shows: Dictator : Itz Han MD Report Date : 08/23/2018 14:00:26 FINDINGS: LUNGS: No active pulmonary disease. PLEURA: No significant pleural effusion identified, no pneumothorax apparent. CARDIOVASCULAR: No aortic atherosclerotic calcification present. Normal cardiac size. No pulmonary vascular congestion. OSSEOUS STRUCTURES: No significant abnormalities. VISUALIZED UPPER ABDOMEN: Normal. OTHER FINDINGS: None. IMPRESSION: No active disease. Radiology Orders: 08/23/18 13:18 CHEST PORTABLE [RAD] Stat Sales Engineer: Radiologist - EKG Interpretation EKG Interpretation (Text): EKG: Ordered, reviewed, and independently interpreted the EKG. Rate : 111 BPM Rhythm : Sinus tachycardia Interpretation : No ST-segment elevations or depressions, no T-wave inversions, normal intervals. Interpreted by ED Physician: Yes Type: 12 lead EKG - Medication Orders Current Medication Orders: Discontinued Medications Albuterol/Ipratropium (Duoneb 3 Mg/0.5 Mg (3 Ml) Ud) 3 ml IH Q15M ANGELA Stop: 08/23/18 14:31 Last Admin: 08/23/18 14:16 Dose: 3 ml Magnesium Sulfate (Magnesium Sulfate 2 Gm/50 Ml Water) 2 gm in 50 mls @ 50 mls/hr IVPB ONCE ONE Stop: 08/23/18 14:29 Last Admin: 08/23/18 14:16 Dose: 50 mls/hr eMAR Start Stop Document 08/23/18 14:16 EQ (Rec: 08/23/18 14:16 EQ [id number]) Intravenous Solution Start Date 08/23/18 Start Time 14:16 Methylprednisolone (Solu-Medrol) 125 mg IVP STAT STA Stop: 08/23/18 13:14 Last Admin: 08/23/18 14:16 Dose: 125 mg IVP Administration Document 08/23/18 14:16 EQ (Rec: 08/23/18 14:16 EQ [id number]) Charges for Administration # of IVP Administrations 1 - Scribe Statement The provider has reviewed the documentation as recorded by the Scribe Joyce Cobos All medical record entries made by the Scribe were at my direction and personally dictated by me. I have reviewed the chart and agree that the record accurately reflects my personal performance of the history, physical exam, medical decision making, and the department course for this patient. I have also personally directed, reviewed, and agree with the discharge instructions and di sposition. Disposition/Present on Arrival - Present on Arrival Any Indicators Present on Arrival: No History of DVT/PE: No History of Uncontrolled Diabetes: No Urinary Catheter: No History of Decub. Ulcer: No History Surgical Site Infection Following: None - Disposition Have Diagnosis and Disposition been Completed?: Yes Diagnosis: Asthma exacerbation Disposition: HOME/ ROUTINE Disposition Time: 14:40 Condition: IMPROVED Discharge Instructions (ExitCare): Asthma, Adult (DC), Avoiding Asthma Triggers Additional Instructions: AIDAN SIERRA, thank you for letting us take care of you today. Your provider was Constantino Roth DO and you were treated for asthma. The emergency medical care you received today was directed at your acute symptoms. If you were prescribed any medication, please fill it and take as directed. It may take several days for your symptoms to resolve. Return to the Emergency Department if your symptoms worsen, do not improve, or if you have any other problems. Please contact your doctor or call one of the physicians/clinics you have been referred to that are listed on the Patient Visit Information form that is included in your discharge packet. Bring any paperwork you were given at discharge with you along with any medications you are taking to your follow up v isit. Our treatment cannot replace ongoing medical care by a primary care provider outside of the emergency department. Thank you for allowing the [facility] team to be part of your care today. Follow up with your primary care doctor in 2-3 days for re-evaluation and further management. Prescriptions: Benzonatate [Tessalon Perle] 100 mg PO Q8 PRN #20 capsule PRN Reason: Cough predniSONE [Prednisone] 40 mg PO DAILY #10 tab Referrals: Kourtney Pink MD [Family Provider] - Follow up with primary Forms: [employer] (Guatemalan)
[2018-08-23 14:42] LABS: TROPONIN I < 0.01 ng/mL
[2018-08-23 15:29] VITALS: BP 148/85; PULSE 100
--- NOTE | 2018-08-23 20:11 | CARD ---
APPROVED REPORT Date of service: 08/23/2018 EKG Measurement Heart [id number] <Conclusion> Sinus tachycardia Nonspecific T wave abnormality Abnormal ECG
== END 2018-08-23 15:55 | disposition home or self-care (01) ==
LOC: ED 12:46
DX: J45.901 Unspecified asthma with (acute) exacerbation (principal); I10 Essential (primary) hypertension
CPT/HCPCS: 71045; 80053; 82550; 83615; 83735; 84484; 85025; 87804; 93005; 96374; 99284; J2930

== ENCOUNTER 2018-08-31 13:45 | Inpatient (IN) | payer OTHER ==
[2018-08-31 13:45] VITALS: BMI 38.0
--- NOTE | 2018-08-31 14:00 | ED PDOC ---
Arrival/HPI - General Historian: Patient - History of Present Illness Narrative History of Present Illness (Text): 08/31/18 13:57 63 year old male, with no significant past medical history, who presents to the emergency department complaining of wheezing, cough, congestion, and shortness of breath for one week. Patient was seen in the Emergency department last week for symptoms, where had a Chest X-ray done, which was negative. After being d/c, pt felt better for one day. However, 2 days later, symptoms returned. Patient saw Dr. Pink, who gave pt a Medrol dose and abx, but pt feels no relief from symptoms. Patient denies any chest pain, abdominal pain, nausea, vomiting, diarrhea, back pain, neck pain, headache, dizziness, or any other complaint. No calf pain or swelling. NO fever or shills. No pleuritic discomfort or abdominal pain. 08/31/18 17:51 Time/Duration: > week Symptom Onset: Gradual Symptom Course: Unchanged Activities at Onset: Light Context: Home Past Medical History - Provider Review Nursing Documentation Reviewed: Yes - Past History Past History: No Previous - Infectious Disease Hx of Infectious Diseases: None - Tetanus Immunization Tetanus Immunization: Unknown - Past Medical History Past Medical History: Non-Contributing - Cardiac Hx Cardiac Disorders: Yes Hx Hypertension: Yes - Pulmonary Hx Asthma: Yes Hx Chronic Obstructive Pulmonary Disease (COPD): Yes Hx Sleep Apnea: Yes - Neurological Hx Neurological Disorder: No - HEENT Hx HEENT Disorder: No - Renal Hx Renal Disorder: No - Endocrine/Metabolic Hx Endocrine Disorders: No - Hematological/Oncological Hx Blood Disorders: No - Integumentary Hx Dermatological Disorder: No - Musculoskeletal/Rheumatological Hx Musculoskeletal Disorders: No - Gastrointestinal Hx Gastrointestinal Disorders: No - Genitourinary/Gynecological Hx Genitourinary Disorders: No - Psychiatric Hx Psychophysiologic Disorder: No Hx Substance Use: No - Past Surgical History Past Surgical History: Non-Contributing - Surgical History Hx Section: Yes Hx Hysterectomy: Yes Other/Comment: Right breast cyst removal - Anesthesia Hx Anesthesia: Yes Hx Anesthesia Reactions: No Hx Malignant Hyperthermia: No - Suicidal Assessment Feels Threatened In Home Enviroment: No Family/Social History - Physician Review Nursing Documentation Reviewed: Yes Family/Social History: Unknown Family HX Smoking Status: Never Smoked Hx Alcohol Use: Yes Hx Substance Use: No Hx Substance Use Treatment: No Allergies/Home Meds Allergies/Adverse Reactions: Allergies aspirin Allergy (Mild, Verified 08/31/18 17:45) RASH Penicillins Allergy (Mild, Verified 08/31/18 17:45) RASH Home Medications: Home Meds Medication Instructions Recorded Confirmed Fluticasone/Vilanterol [Breo 1 puff IH DAILY 07/24/17 08/31/18 Ellipta 100-25 Mcg INH] Albuterol HFA [Ventolin HFA 90 2 puff IH PRN PRN 09/17/17 08/31/18 mcg/actuation (8 g)] Albuterol Sulfate [Proair Hfa] 200 puff IH PRN PRN 10/16/17 08/31/18 Review of Systems - Review of Systems Constitutional: absent: Fatigue, Fevers Eyes: absent: Vision Changes, Eye Pain ENT: Sinus Congestion Respiratory: SOB, Cough, Wheezing Cardiovascular: absent: Chest Pain, Calf Pain Gastrointestinal: absent: Abdominal Pain Genitourinary Female: absent: Dysuria, Frequency Musculoskeletal: absent: Back Pain, Neck Pain Skin: absent: Rash Neurological: absent: Headache, Dizziness Physical Exam - Physical Exam Narrative Physical Exam (Text): 08/31/18 14:01 Head: Atraumatic. Normocephalic. Eyes: PERRL. EOMI. Conjunctivae are not pale. ENT: Mucous membranes are moist and intact. Oropharynx is clear and symmetric. No pharyngeal erythema or exudates. Neck: Supple. Full ROM. No JVD. No lymphadenopathy.No meningeal signs. Cardiovascular: Regular rate. Regular rhythm. No murmurs, rubs, or gallops. Distal pulses are 2+ and symmetric. Pulmonary/Chest: mild respiratory distress. inspiratory wheezing. No accessory muscle usage. Abdominal: Soft and non-distended. There is no tenderness. No rebound, guarding, or rigidity. No organomegaly. Good bowel sounds. Back: No CVA tenderness. Extremities: No edema. No cyanosis. No clubbing. Full range of motion in all extremities. No calf tenderness. Skin: Skin is warm and dry. No petechiae. No purpura. Neurological: Alert, awake, and oriented. Motor and sensory exam intact. Psychiatric: Good eye contact. Normal interaction, affect, and behavior. Vital Signs Reviewed: Yes Vital Signs Temp Pulse Resp BP Pulse Ox 08/31/18 13:50 98.9 F 81 18 115/72 99 Temperature: Afebrile Blood Pressure: Normal Pulse: Regular Respiratory Rate: Tachypneic Appearance: Positive for: Well-Appearing, Non-Toxic, Ill-Appearing, Uncomfortable Pain Distress: Moderate Mental Status: Positive for: Alert and Oriented X 3 Medical Decision Making ED Course and Treatment: 08/31/18 14:02 Impression: 63 year old female presents to the emergency department complaining of SOB, cough, congestion, and wheezing x 6 days. Differential Diagnosis included but are not limited to: Pneumonia vs. CHF vs. asthma Plan: -- Labs -- VBG -- Urine culture -- Blood culture -- UA -- CXR -- Nebulizer -- Steroids -- Cardiac ISO -- Reassess and disposition Progress Notes: Patient with diffuse wheezing on initial exam, although no accessory muscle usage. No chest pain or pleuritic pain. No calf pain or recent travel. No fever. CXR ordered: 08/31/18 15:48 Chest X-ray reviewed, shows: IMPRESSION: No active disease. 08/31/18 15:52 EKG unremarkable. Initial troponin and bnp unremarkable. After multiple nebulizers and iv steroids, no improvement in wheezing. RR 18. Sats.99%. Will admit for acute asthma exacerbation, failure of outpatient treatment. Denies smoking. Denies ocp. Denies history of PE or DVT in self or family. - EKG Interpretation EKG Interpretation (Text): 08/31/18 17:52 EKG at 1443 normal sinus rhythm rate of [address] elevations Interpreted by ED Physician: Yes Type: 12 lead EKG - Scribe Statement The provider has reviewed the documentation as recorded by the Mague Ruggiero All medical record entries made by the Mague were at my direction and personally dictated by me. I have reviewed the chart and agree that the record accurately reflects my personal performance of the history, physical exam, medical decision making, and the department course for this patient. I have also personally directed, reviewed, and agree with the discharge instructions and disposition. Disposition/Present on Arrival - Present on Arrival Any Indicators Present on Arrival: No History of DVT/PE: No History of Uncontrolled Diabetes: No Urinary Catheter: No History Surgical Site Infection Following: None - Disposition Have Diagnosis and Disposition been Completed?: Yes Diagnosis: Asthma exacerbation Disposition: HOSPITALIZED Disposition Time: 15:54 Patient Plan: Admission, Telemetry Patient Problems: Current Active Problems Problem Status Onset Asthma exacerbation Acute Condition: FAIR
[2018-08-31] MEDS: Albuterol-Ipratrop 3 mg / 0.5 (3 ml) UD IH SCH ×3 (14:08→15:04)
[2018-08-31] MEDS ORDERED: Albuterol-Ipratrop 3 mg / 0.5 (3 ml) UD ONE (14:08)
[2018-08-31 14:42] LABS: VENOUS BLOOD GAS BASE EXCESS 2.1 mmol/L (0.0-2.0); VENOUS BLOOD GAS PO2 40 mm/Hg (30-55); VENOUS BLOOD PH 7.35 (7.32-7.43)
[2018-08-31 14:47] LABS: BASO # 0.03 K/mm3 (0.0-2.0); BASO % 0.4 % (0.0-3.0); EOS # 0.6 (0.0-0.7); EOS % 8.3 % (1.5-5.0); GRAN # 2.97 (1.4-6.5); GRAN % 40.2 % (50.0-68.0); HEMOGLOBIN 12.9 g/dL (12.0-16.0); LYMPH # 3.1 (1.2-3.4); LYMPH % 41.7 % (22.0-35.0); MEAN CELL VOLUME 83.4 fl (80.0-105.0); MEAN CORPUSCULAR HEMOGLOBIN 28.2 pg (25.0-35.0); MEAN CORPUSCULAR HGB CONC 33.9 g/dl (31.0-37.0); MONO # 0.7 (0.1-0.6); MONO % 9.4 % (1.0-6.0); RBC 4.57 10^6/uL (3.5-6.1); RED CELL DISTRIBUTION WIDTH 14.5 % (11.5-14.5); WHITE BLOOD COUNT 7.4 10^3/uL (4.5-11.0)
[2018-08-31 14:51] LABS: PROTHROMBIN TIME 11.5 SECONDS (9.4-12.5)
[2018-08-31 15:32] LABS: TROPONIN I < 0.01 ng/mL
[2018-08-31 15:35] LABS: ALB/GLOB RATIO 1.1 (1.1-1.8); ALBUMIN 3.6 g/dL (3.0-4.8); ALT/SGPT 17 U/L (7-56); AST/SGOT 26 U/L (14-36); BLOOD UREA NITROGEN 15 mg/dL (7-21); CALCIUM 9.1 mg/dL (8.4-10.5); GFR NON-AFRICAN AMERICAN > 60
--- NOTE | 2018-08-31 15:36 | CARD ---
APPROVED REPORT Date of service: 08/31/2018 EKG Measurement Heart [id number] <Conclusion> Normal sinus rhythm Normal ECG
--- NOTE | 2018-08-31 15:43 | RAD ---
Date of service: 08/31/2018 HISTORY: sob COMPARISON: 08/23/2018 FINDINGS: LUNGS: No active pulmonary disease. PLEURA: No significant pleural effusion identified, no pneumothorax apparent. CARDIOVASCULAR: No aortic atherosclerotic calcification present. Normal cardiac size. No pulmonary vascular congestion. OSSEOUS STRUCTURES: No significant abnormalities. VISUALIZED UPPER ABDOMEN: Normal. OTHER FINDINGS: None. IMPRESSION: No active disease.
[2018-08-31] MEDS ORDERED: Influenza Vaccine 60 mcg/0.5 mL SYR (4YR UP) IM ONE (20:15)
[2018-08-31] MEDS ORDERED: Pneumococcal 23-Valent Vaccine IM ONE (20:15)
[2018-08-31] MEDS ORDERED: Albuterol-Ipratrop 3 mg / 0.5 (3 ml) UD IH STA (22:00)
[2018-08-31] MEDS ORDERED: cefTRIAXone 1 gm 1 GM/100 ML BAG IVPB SCH (22:00)
[2018-09-01] MEDS: MethylPREDNISolone 40 mg Vial IVP SCH ×5 (00:24→22:22)
[2018-09-01] MEDS: Albuterol-Ipratrop 3 mg / 0.5 (3 ml) UD IH SCH ×3 (02:00→14:26)
[2018-09-01 06:47] VITALS: RESP 20
[2018-09-01] MEDS: Arformoterol 15 mcg/2 ml Inh Sol IH SCH ×2 (08:09→21:20)
[2018-09-01] MEDS: Budesonide 0.5 mg/2 ml Inhal Susp UD IH SCH ×2 (08:10→21:20)
[2018-09-01] MEDS: Azithromycin 500MG/NS 250ml 500 MG/250 ML BAG IVPB SCH (09:39)
[2018-09-01] MEDS ORDERED: cefTRIAXone 1 gm 1 GM/100 ML BAG IVPB SCH (10:00)
[2018-09-01] MEDS ORDERED: Azithromycin 500 MG in Sodium Chloride 0.9% 250 ML IVPB SCH (10:00)
[2018-09-01] MEDS ORDERED: Permethrin 1% Kit 59 ML BOTTLE TOP ONE (17:29)
[2018-09-01] MEDS ORDERED: Albuterol-Ipratrop 3 mg / 0.5 (3 ml) UD IH PRN (21:01)
--- NOTE | 2018-09-01 23:32 | CON ---
DATE: 09/01/2018 PULMONARY CONSULTATION REFERRING PHYSICIAN: Dr. Pink REASON FOR CONSULT: Obstructive lung disease. HISTORY OF PRESENT ILLNESS: This is a 63-year-old female known to me from the office, noncompliant with the followup, has a known history of chronic obstructive lung disease, sleep apnea syndrome, hypertension, who has been having some rhinitis, cough, shortness of breath, seen in the emergency room 2 days ago with persistent symptom, comes into emergency again, admitted, started on antibiotics, steroids, feels a little better. She had first part of sleep study done a while ago which was positive and did not follow up. No hemoptysis. No emesis. No hematuria. No diarrhea reported. PAST MEDICAL HISTORY: As per history of present illness. FAMILY HISTORY: No significant cardiopulmonary disease reported. SOCIAL HISTORY: Nonsmoker, nondrinker. ALLERGIES: TO ASPIRIN AND PENICILLIN. MEDICATIONS: She is on Brovana inhaled twice a day, DuoNeb every 6 hours p.r.n., Pepcid 40 mg h.s., Pulmicort inhaled twice a day, Solu-Medrol 60 mg every 6 hours, benzonatate 100 mg every 8 hours p.r.n., Tylenol p.r.n. basis, Zithromax 500 mg daily. REVIEW OF SYSTEMS: No headache. Has some rhinitis, postnasal drip, cough and shortness of breath. Admitted to have snoring, daytime sleepy and tired. No nausea, vomiting or diarrhea. No leg swelling. PHYSICAL EXAMINATION: GENERAL: Sitting on the side of the bed, feels better. VITAL SIGNS: Temperature is 98, heart rate is 96, respiratory rate is 20, blood pressure 151/87, pulse ox 96% on room air. HEENT: Moist mucous membranes. Crowded airway. Mallampati score is 4. NECK: Supple. No JVD. LUNGS: Have a prolonged expiratory phase with wheezing. HEART: S1 and S2. ABDOMEN: Soft, nontender. No organomegaly. EXTREMITIES: No edema. NEUROLOGIC: Awake, alert, follows simple commands. LABORATORY DATA: Shows hemoglobin 12.9, hematocrit 38.1, WBC 7.4, platelet count is 311. INR 1, PTT 31. VBG shows pH 7.35, pCO2 is 52, O2 of 40. Sodium 138, potassium 4, chloride 106, bicarbonate 26, BUN 15, creatinine 0.6, glucose 82, calcium 9.1, total bili 0.6, AST 26, ALT 17, alk phos is 66. Albumin is 3.6, total protein 6.9. ProBNP 32. Microbiology, blood culture has been negative. Chest x-ray done in ER shows no infiltrate or effusion. IMPRESSION AND PLAN: Exacerbation of chronic obstructive lung disease, may have sinusitis, sleep apnea syndrome, hypertension, noncompliant. Agree with Dr. Pink with the present management, continue antibiotics, decrease Solu-Medrol, add Singulair 10 mg h.s. Gastric and deep venous thrombosis prophylaxis. Outpatient followup sleep study and pulmonary function test. Thank you and we will follow with you. Jessie Tuttle MD
[2018-09-02] MEDS: MethylPREDNISolone 40 mg Vial IVP SCH ×2 (00:45→06:25)
--- NOTE | 2018-09-02 03:59 | HP ---
DATE OF EXAM: 09/01/2018 The patient is a 63 years old female. The patient was seen and examined at the bedside 09/01/2018. CHIEF COMPLAINT: Shortness of breath, coughing. HISTORY OF PRESENT ILLNESS: Ms. Jan Rios is a 63 years old female with no significant past medical history, came to the emergency department complaining of wheezing, coughing, congested, shortness of breath for one week. The patient was seen in the emergency last week for same symptoms and had chest x-ray done which was negative. After being discharged, the patient felt better for one day; however, after two days later, the patient came in to my office for the same symptoms. I gave the patient Medrol Dosepak, antibiotics, but the patient sees no relief from symptoms. The patient denies any chest pain, abdominal pain. No nausea, vomiting, diarrhea. No back pain or neck pain. No headache, no dizziness. No fever, no chills, but still coughing, tight in the chest and shortness of breath. PAST MEDICAL HISTORY: As above. Hypertension, asthma, COPD, history of hysterectomy, section, right breast cyst removal. FAMILY HISTORY: Father and mother, noncontributory. HABITS: Never smoked. No drugs. Alcohol, yes socially as per patient. ALLERGIES: ALLERGIC WITH ASPIRIN AND PENICILLIN. HOME MEDICATIONS: Ventolin, albuterol, and ProAir. REVIEW OF SYSTEMS: The patient was seen and examined at the bedside in her room. Two sisters were at the bedside also. Feeling fatigue and tired. No vision changes. No eye changes. No signs of congestion. Having shortness of breath, coughing and wheezing. No calf pain. No abdominal pain. No dysuria, frequency. No back pain, no neck pain. No rash. PHYSICAL EXAMINATION VITAL SIGNS: Temperature 98.9, pulse 81, respiratory rate 18, blood pressure 150/72, pulse oximetry 99. HEENT: Head is normocephalic, atraumatic. Eyes; PERRLA. Extraocular muscles are intact. Conjunctivae clear. Nose patent. Mucous membranes moist. NECK: Supple. No carotid bruits. No JVD or thyromegaly. CHEST: Bilaterally symmetrical. LUNGS: Positive wheezing bilaterally. HEART: S1, S2 positive. ABDOMEN: Soft. Bowel sounds present. No organomegaly. EXTREMITIES: No edema. No cyanosis. NEUROLOGIC: The patient is awake and alert. Moving all four extremities. No focal deficits. Follows simple orders. LABORATORY DATA: White blood cell is 7.4, hemoglobin 12.9, hematocrit 38.1, platelets 311. Sodium 138, potassium 4, BUN 15, creatinine 0.6. AST 26 and ALT 17. ASSESSMENT AND PLAN: Ms. Jan Rios is a 63 years old lady came with shortness of breath and coughing. Chest x-ray done, no active disease. The patient has history of asthma, bronchitis, hypertension, chronic obstructive pulmonary disease, hysterectomy, section, right breast cyst. Actually, the patient was seen in ER last week with the same complaints, given treatment, sent home. After two days, the patient came in to my office, I gave her Medrol Dosepak, antibiotics, inhalers, and called the patient's insurance for authorization, I do not know he actually took or not, but the patient now came again with exacerbation of asthma, coughing, shortness of breath, chest tightness with coughing. We admitted the patient, started on Brovana, DuoNeb, Pepcid for GI prophylaxis. Pulmicort started. Solu-Medrol, high dose given in the ER, then I put on 40 mg IV every 8 hours. Tylenol given, Zithromax IV started. Discussion was done with the patient and the patient's nursing staff. GI and DVT prophylaxis. Repeat labs. We will follow up. Kourtney Pink MD
[2018-09-02 07:05] LABS: BLOOD UREA NITROGEN 18 mg/dL (7-21); CALCIUM 9.6 mg/dL (8.4-10.5); GFR NON-AFRICAN AMERICAN > 60; HDL CHOLESTEROL 76 mg/dL (29-60)
[2018-09-02 07:06] LABS: HEMOGLOBIN 12.8 g/dL (12.0-16.0); MEAN CELL VOLUME 82.4 fl (80.0-105.0); MEAN CORPUSCULAR HEMOGLOBIN 27.9 pg (25.0-35.0); MEAN CORPUSCULAR HGB CONC 33.9 g/dl (31.0-37.0); MEAN PLATELET VOLUME 9.9 fl (7.0-11.0); RBC 4.59 10^6/uL (3.5-6.1); RED CELL DISTRIBUTION WIDTH 14.7 % (11.5-14.5); WHITE BLOOD COUNT 18.3 10^3/uL (4.5-11.0)
[2018-09-02 07:15] LABS: LDL CHOLESTEROL 109 mg/dL (0-129)
[2018-09-02] MEDS: Budesonide 0.5 mg/2 ml Inhal Susp UD IH SCH ×2 (07:55→20:50)
[2018-09-02] MEDS: Arformoterol 15 mcg/2 ml Inh Sol IH SCH ×2 (07:59→20:50)
[2018-09-02] MEDS: Azithromycin 500MG/NS 250ml 500 MG/250 ML BAG IVPB SCH (11:00)
--- NOTE | 2018-09-02 12:11 | PN ---
PULMONARY PROGRESS NOTE DATE: 09/02/2018 SUBJECTIVE: The patient is sitting in armchair in her room. No acute distress noted. No overnight events reported. No headache, rhinitis, cough, shortness of breath, chest pain, abdominal pain, nausea, vomiting, diarrhea, dysuria, leg pain or leg swelling reported. OBJECTIVE: VITAL SIGNS: Blood pressure 146/71, pulse 88, temp 98.2 and oxygenation 100% on room air. GENERAL: No acute distress. HEENT: Moist mucous membranes. Mallampati score of 4. Crowded airway. NECK: Supple. No JVD. LUNGS: Clear. Does have prolonged expiratory phase. No audible wheezing. CARDIOVASCULAR: S1 and S2 audible. ABDOMEN: Soft and nontender. No distention. No organomegaly. EXTREMITIES: No bilateral lower extremity edema. NEUROLOGIC: Awake, alert, verbally responsive. Follow simple commands. LABORATORY DATA: Reviewed. WBC 18.3, RBC 4.59, hemoglobin 12.8, hematocrit 37.8 and platelets 343. Sodium 138, potassium 4.4, chloride 106, carbon dioxide 27, anion gap 10, BUN 18, creatinine 0.6, GFR greater than 60, random glucose 170, calcium 9.6 and iron 94. Triglycerides 57, cholesterol 218, LDL 109 and HDL 76. TSH 0.20. Vitamin B12 and folate pending. MEDICATIONS: Reviewed. Tylenol 650 mg every 4 hours p.r.n. for fever greater than 100.4. Tylenol 650 mg p.o. every 4 hours p.r.n. for mild pain, DuoNeb 3 mL inhalation every 6 hours p.r.n., Brovana 15 mcg inhalation every 12 hours, azithromycin 500 mg daily, Tessalon Perles 100 mg every 8 hours p.r.n., Pulmicort 1 mg inhalation every 12 hours, Pepcid 40 mg p.o. at bedtime, Solu-Medrol 40 mg IV push every 8 hours and Singulair 10 mg p.o. at bedtime. IMPRESSION AND PLAN: Exacerbation of chronic obstructive lung disease, may have sinusitis, sleep apnea syndrome, history of noncompliance, and hypertension. Continue antibiotic therapy. Continue steroids, leukotriene inhibitors, inhaled bronchodilators, gastric prophylaxis and deep venous thrombosis prophylaxis. Leukocytosis may be result of steroids as patient clinically appears to be better. Will decrease steroid, CBC in AM. If discharged home we recommend Medrol dose pack and continue Zithromaz for another three days. We recommend the patient have sleep study and full pulmonary function test as outpatient. This patient was seen and examined with Dr. Tuttle. Discussed assessment and plan as described above. Thank you for this consult and we will follow with you. Kyle Quiroga APN Jessie Tuttle MD C[facility]
[2018-09-02 13:49] LABS: FOLATE 17.4 ng/mL
--- NOTE | 2018-09-02 17:41 | PN ---
DATE: 09/02/2018 SUBJECTIVE: The patient is a 63-year-old female. The patient was seen and examined at the bedside on 09/02/2018. This patient was hospitalized on 09/02/2018. Looking comfortable. Sitting on the chair. is found sitting on the bedside. No fever. No chills. No nausea, vomiting, or diarrhea. No hematuria or hematochezia. No swelling of the legs. No chest pain, no palpitations. No headaches or dizziness. Mild cough and shortness of breath, seen by the case assembler. PHYSICAL EXAMINATION: VITAL SIGNS: Temperature 98.2, pulse 88, blood pressure 143/79, respiratory rate 20. HEENT: Head is normocephalic and atraumatic. Eyes PERRLA. Extraocular muscles are intact. Conjunctivae clear. Nose patent. Mucous membranes moist. NECK: Supple. No carotid bruits, no JVD, no thyromegaly. CHEST: Bilaterally symmetrical. HEART: S1 and S2 positive. LUNGS: Positive wheezing bilaterally. ABDOMEN: Soft. Bowel sounds present. No organomegaly. EXTREMITIES: No edema, no cyanosis. NEUROLOGIC: The patient is awake and alert. Moving all four extremities. Follows simple commands. MEDICATIONS: DuoNeb, Pepcid, Pulmicort, Singulair, Solu-Medrol, Tessalon Perles, Tylenol, azithromycin. LABORATORY DATA: White blood cells 1.3, hemoglobin 12.8, hematocrit 37.8, and platelets 43. Sodium 138, potassium 4.4, BUN 18, creatinine 0.6, glucose 170, 218. ASSESSMENT AND PLAN: Ms. Jan Rios is a 63-year-old lady with leukocytosis, mainly due to steroid induced, hyperglycemia could be due to steroid induced, hypercholesterolemia, rule out hyperthyroidism, came with exacerbation of asthma, failed outpatient treatment. The patient came into the emergency room two times and even got treatment from my office as outpatient, failure of outpatient treatment. Has sinusitis, sleep apnea syndrome, hypertension, noncompliance. I agree with Dr. Tuttle's management. Continue antibiotics, tapering dose of Soul-Medrol, Singulair. Gastric and deep vein thrombosis prophylaxis. Needs outpatient sleep study and pulmonary function test. Discussion had with the patient and education done. We will continue tapering down steroid. We will follow up. Kourtney Pink MD
[2018-09-02] MEDS ORDERED: MethylPREDNISolone 40 mg Vial IVP SCH (22:00)
[2018-09-03 01:01] VITALS: O2SAT 98
[2018-09-03 06:42] VITALS: BP 128/52; TEMP 98.8
[2018-09-03 07:02] LABS: GRAN # 9.87 (1.4-6.5); GRAN % 84.6 % (50.0-68.0); HEMOGLOBIN 12.9 g/dL (12.0-16.0); LYMPH # 1.3 (1.2-3.4); LYMPH % 11.1 % (22.0-35.0); MEAN CELL VOLUME 82.6 fl (80.0-105.0); MEAN CORPUSCULAR HGB CONC 33.9 g/dl (31.0-37.0); MEAN PLATELET VOLUME 9.8 fl (7.0-11.0); MONO # 0.5 (0.1-0.6); MONO % 4.3 % (1.0-6.0); RBC 4.61 10^6/uL (3.5-6.1); WHITE BLOOD COUNT 11.7 10^3/uL (4.5-11.0)
[2018-09-03] MEDS: Budesonide 0.5 mg/2 ml Inhal Susp UD IH SCH (08:15)
[2018-09-03] MEDS: Arformoterol 15 mcg/2 ml Inh Sol IH SCH (08:15)
--- NOTE | 2018-09-03 11:57 | PN ---
PULMONARY PROGRESS NOTE DATE: 09/03/2018 REFERRING PHYSICIAN: Kourtney Pink MD SUBJECTIVE: The patient is sitting up at bedside, present. No overnight events reported. No headache, rhinitis, cough, shortness of breath, chest pain, abdominal pain, nausea, vomiting, diarrhea, dysuria, leg pain or leg swelling reported. OBJECTIVE: VITAL SIGNS: Blood pressure 128/52, pulse 69, temperature 98.8 and pulse ox 98% on room air. GENERAL: No acute distress. HEENT: Moist mucous membranes. Mallampati score of 4. Crowded airway. NECK: Supple. No JVD. LUNGS: Clear bilaterally. Prolonged expiratory phase. No audible wheezing. CARDIOPULMONARY: S1 and S2 audible. ABDOMEN: Soft and nontender. No distention. No organomegaly. EXTREMITIES: No bilateral lower extremity edema. NEUROLOGIC: Awake, alert, verbal. Follow simple commands. LABORATORY DATA: Reviewed. WBC 11.7, RBC 4.61, hemoglobin 12.9, hematocrit 38.1 and platelets 330. MEDICATIONS: Reviewed. Tylenol 650 mg every 4 hours p.r.n. for fever greater than 100.4, Tylenol 650 mg p.o. every 4 hours p.r.n. for mild pain, DuoNeb 3 mL inhalation every 6 hours p.r.n., Brovana 15 mcg inhalation every 12 hours, Lipitor 10 mg at dinner, Zithromax 500 mg daily, Tessalon Perles 100 mg every 8 hours p.r.n., Pulmicort 1 mg inhalation every 12 hours, Pepcid 40 mg at dinner, Solu-Medrol 20 mg IV push every 12 hours and Singulair 10 mg p.o. at bedtime. IMPRESSION AND PLAN: Exacerbation of chronic obstructive lung disease, may have sinusitis, sleep apnea syndrome, history of noncompliance, and hypertension. Leukocytosis improving. The patient clinically is better. Continue bronchodilators, gastric prophylaxis, and deep venous thrombosis prophylaxis. If patient is discharged home, we recommend the patient goes home with Medrol Dosepak and Zithromax for 3 days. We recommend the patient have sleep study and full pulmonary function test as outpatient. This patient was seen and examined with Dr. Tuttle. Discussed assessment and plan as described above. Thank you for this consult and we will follow with you. Kyle Quiroga APN Jessie Tuttle MD C[facility]
[2018-09-03 14:05] VITALS: PULSE 98
--- NOTE | 2018-09-04 23:31 | PQF ---
PROVIDER RESPONSE TEXT: Mild persistent REVIEWER QUERY TEXT: Asthma Specificity and Type Asthma is documented in the Medical Record. Please specify the type and severity of asthma and indic ate if this is associated with exacerbation or status asthmaticus. Such as: -- Mild intermittent -- Mild persistent -- Moderate persistent -- Severe persistent -- Exercise induced bronchospasm -- Cough variant asthma -- Other, please specify The patient's Clinical Indicators include: Please see below. Thank you. Query created by: Giana Ochoa on 09/04/2018 3:39 PM Electronically signed by: Jessie Tuttle MD 09/04/2018 11:27 PM
== END 2018-09-03 12:00 | disposition left against medical advice (07) | DRG 202 ==
LOC: ED 13:45 → ERH 15:55 → 3RSO 16:43 → 2RNO 09-01 22:48
PROVIDERS: ADMIT Internal Medicine; ATTEND Internal Medicine
DX: J45.30 Mild persistent asthma, uncomplicated (principal); J44.1 Chronic obstructive pulmonary disease with (acute) exacerbation; G47.30 Sleep apnea, unspecified; I10 Essential (primary) hypertension; J31.0 Chronic rhinitis; D72.829 Elevated white blood cell count, unspecified; R73.9 Hyperglycemia, unspecified; T38.0X5A Adverse effect of glucocorticoids and synthetic analogues, initial encounter; E78.00 Pure hypercholesterolemia, unspecified; Z91.19 Patient's noncompliance with other medical treatment and regimen; Z90.710 Acquired absence of both cervix and uterus; Z88.6 Allergy status to analgesic agent; Z88.0 Allergy status to penicillin

== ENCOUNTER 2019-01-19 13:02 | Emergency (ER) | payer OTHER ==
[2019-01-19 13:02] VITALS: BMI 38.0
[2019-01-19] MEDS: Albuterol-Ipratrop 3 mg / 0.5 (3 ml) UD IH SCH ×3 (13:15→13:45)
--- NOTE | 2019-01-19 13:24 | ED PDOC ---
Arrival/HPI - General Chief Complaint: Shortness Of Breath Time Seen by Provider: 01/19/19 13:03 Historian: Patient - History of Present Illness Narrative History of Present Illness (Text): 01/19/19 13:24 A 63 year old female, whose past medical history includes asthma, presents to the emergency department complaining of cough and wheezing for a few days. Patient reports she has been using her inhaler at home with little improvement. Patient denies any fever, or any other complaints at this time. PMD: Dr. Pink Past Medical History - Provider Review Nursing Documentation Reviewed: Yes - Past History Past History: No Previous - Infectious Disease Hx of Infectious Diseases: None - Tetanus Immunization Tetanus Immunization: Unknown - Past Medical History Past Medical History: Non-Contributing - Cardiac Hx Cardiac Disorders: Yes Hx Hypertension: Yes - Pulmonary Hx Respiratory Disorders: Yes Hx Asthma: Yes Hx Chronic Obstructive Pulmonary Disease (COPD): Yes Hx Sleep Apnea: Yes - Neurological Hx Neurological Disorder: No - HEENT Hx HEENT Disorder: No - Renal Hx Renal Disorder: No - Endocrine/Metabolic Hx Endocrine Disorders: No - Hematological/Oncological Hx Blood Disorders: No - Integumentary Hx Dermatological Disorder: No - Musculoskeletal/Rheumatological Hx Musculoskeletal Disorders: No Hx Falls: No - Gastrointestinal Hx Gastrointestinal Disorders: Yes Hx Gastroesophageal Reflux: Yes - Genitourinary/Gynecological Hx Genitourinary Disorders: Yes (C/S X 2,HYSTERECTOMY,CYST RIGHT BREAST REMOVED) - Psychiatric Hx Psychophysiologic Disorder: No Hx Substance Use: No - Past Surgical History Past Surgical History: Non-Contributing - Surgical History Hx Cardiac Catheterization: Yes Hx Hysterectomy: Yes Other/Comment: Right breast cyst removal - Anesthesia Hx Anesthesia: Yes Hx Anesthesia Reactions: No Hx Malignant Hyperthermia: No - Suicidal Assessment Feels Threatened In Home Enviroment: No Family/Social History - Physician Review Nursing Documentation Reviewed: Yes Family/Social History: No Known Family HX Smoking Status: Never Smoked Hx Alcohol Use: No Hx Substance Use: No Hx Substance Use Treatment: No Allergies/Home Meds Allergies/Adverse Reactions: Allergies aspirin Allergy (Mild, Verified 01/19/19 13:12) RASH Penicillins Allergy (Mild, Verified 01/19/19 13:12) RASH Home Medications: Home Meds Medication Instructions Recorded Confirmed Albuterol Sulfate [Proair Hfa] 200 puff IH PRN PRN 10/16/17 08/31/18 Methylprednisolone [Medrol Dose 4 mg PO DAILY 08/31/18 08/31/18 Pack (21 tabs)] Review of Systems - Physician Review All systems were reviewed & negative as marked: Yes - Review of Systems Constitutional: absent: Fevers Respiratory: Cough, Wheezing Physical Exam Vital Signs Reviewed: Yes Vital Signs Temp Pulse Resp BP Pulse Ox 01/19/19 13:10 97.6 F 89 18 168/77 H 99 Temperature: Afebrile Blood Pressure: Hypertensive Pulse: Regular Respiratory Rate: Normal Appearance: Positive for: Well-Appearing, Non-Toxic, Comfortable Pain Distress: None Mental Status: Positive for: Alert and Oriented X 3 - Systems Exam Head: Present: Atraumatic, Normocephalic Pupils: Present: PERRL Extroacular Muscles: Present: EOMI Conjunctiva: Present: Normal Mouth: Present: Moist Mucous Membranes Neck: Present: Normal Range of Motion Respiratory/Chest: Present: Wheezes (bilaterally) Cardiovascular: Present: Regular Rate and Rhythm, Normal S1, S2. No: Murmurs Abdomen: No: Tenderness, Distention, Peritoneal Signs Back: Present: Normal Inspection Upper Extremity: Present: Normal Inspection. No: Cyanosis, Edema Lower Extremity: Present: Normal Inspection. No: Edema Neurological: Present: GCS=15, CN II-XII Intact, Speech Normal Skin: Present: Warm, Dry, Normal Color. No: Rashes Psychiatric: Present: Alert, Oriented x 3, Normal Insight, Normal Concentration Medical Decision Making ED Course and Treatment: 01/19/19 13:26 Impression: 63 year old female with cough and wheezing. Physical exam shows bilateral wheezing. Plan: -- EKG -- Chest X-ray -- Duoneb -- Prednisone -- Reassess and disposition Progress Notes: EKG: Ordered, reviewed, and independently interpreted the EKG. Rate : 86 BPM Rhythm : NSR Interpretation : No ST-segment elevations or depressions, no T-wave inversions, normal intervals. Comparison : No previous EKG for comparison. 01/19/2019 14:00 Chest X-ray IMPRESSION: No active disease. Dictator: Carlos Sylvester MD 01/19/19 15:00 mild ashtma exacerbaito kemi er in [place]. drinking cofee speakign full sentnces. s/p nebs steridos wheezing resolved. asking for dc. - Scribe Statement The provider has reviewed the documentation as recorded by the Ricoibed Navarrete Provider Scribe Attestation: All medical record entries made by the Ricoibe were at my direction and personally dictated by me. I have reviewed the chart and agree that the record accurately reflects my personal performance of the history, physical exam, medical decision making, and the department course for this patient. I have also personally directed, reviewed, and agree with the discharge instructions and disposition. Disposition/Present on Arrival - Present on Arrival Any Indicators Present on Arrival: No History of DVT/PE: No History of Uncontrolled Diabetes: No Urinary Catheter: No History of Decub. Ulcer: No History Surgical Site Infection Following: None - Disposition Have Diagnosis and Disposition been Completed?: Yes Diagnosis: Asthma exacerbation Disposition: HOME/ ROUTINE Disposition Time: 14:00 Condition: STABLE Discharge Instructions (ExitCare): Asthma in Adults Additional Instructions: return to any er with worsening. Prescriptions: Prednisone 50 mg PO DAILY #5 tab Referrals: [facility] [Outside] - Follow up with primary [facility] [Outside] - Follow up with primary Kourtney Pink MD [Primary Care Provider] - Follow up with primary Forms: [employer] ([place]ian)
--- NOTE | 2019-01-19 14:03 | RAD ---
Date of service: 01/19/2019 HISTORY: asthma COMPARISON: Chest radiograph dated 08/31/2018. TECHNIQUE: 1 view obtained. FINDINGS: LUNGS: No active pulmonary disease. PLEURA: No significant pleural effusion identified, no pneumothorax apparent. CARDIOVASCULAR: Aortic atherosclerotic calcifications. Cardiomediastinal silhouette stably enlarged. OSSEOUS STRUCTURES: Unchanged. VISUALIZED UPPER ABDOMEN: Normal. OTHER FINDINGS: None. IMPRESSION: No active disease.
[2019-01-19 14:25] VITALS: BP 153/81; PULSE 97; RESP 20; TEMP 98.3; O2SAT 96
--- NOTE | 2019-01-19 18:39 | CARD ---
APPROVED REPORT Date of service: 01/19/2019 EKG Measurement Heart [id number] <Conclusion> Normal sinus rhythm Normal ECG
== END 2019-01-19 14:24 | disposition home or self-care (01) ==
LOC: ED 13:02
DX: J45.901 Unspecified asthma with (acute) exacerbation (principal); I10 Essential (primary) hypertension